=== PATIENT | female | born 1990 | race Two or more races ===

== ENCOUNTER 2024-09-19 21:08 | Inpatient (IN) | payer MEDICAID, OTHER ==
[~2024-09-19] VITALS: Ht 170.2 cm; Wt 130.5 kg
--- NOTE | 2024-09-19 21:24 | ED.PDOC ---
History of Present Illness HPI Comments 34 year old female brought in by EMS presents to the ED with a chief complaint of syncope onset today. Per EMS, patient was hypotensive on scene, BP 60/40, pale and experiencing shortness of breath. Patient states she began experiencing shortness of breath, chest pain, headache, diffused abdominal pain and g eneralized weakness since this morning, noticed she experienced similar symptoms when . Patient has an IUD in place, LMP was early August, took an at home test, was positive, has noticed spotting since yesterday. Denies fever, chills, nausea, vomiting, diarrhea, blurry vision. No other symptoms or modifying factors present at this time. . Vaginal deliveries. History of PE and hyperthyroidism during previous . History of 2 spontaneous abortions. Chief Complaint: Low Blood Pressure Time Seen by MD: 21:10 Reviewed Notes: Medications, Allergies Allergies: Coded Allergies: NO KNOWN ALLERGIES (Unverified , 09/19/24) Home Meds Active Scripts Ondansetron Odt 4MG Tab (ZOFRAN PO) 4 Mg Tb, 4 MG PO Q4HPRN PRN for 7 Days, #35 TAB ODT TAB-DISSOLVE IN MOUTH, THEN SWALLOW Prov:DAR QUINN DO 09/20/24 Ibuprofen (Ibuprofen) 800 Mg Tab, 800 MG PO TID PRN for 4 Days, #12 TAB Prov:DAR QUINN 09/20/24 Hydrocodone-Acetaminophen (Hydrocodone/Acetaminophen 10-325 mg) 1 Tab Tab, 1 TAB PO Q6HPRN PRN for 7 Days, #28 TAB Prov:DAR QUINN DO 09/20/24 Docusate Sodium (Colace) 100 Mg Cap, 1 CAP PO BID, #60 CAP 2 Refills Prov:DAR QUINN 09/20/24 Cephalexin Monohydrate (Cephalexin) 500 Mg Tab, 1 TAB PO QID for 7 Days, #28 TAB Prov:DAR QUINN 09/20/24 Information Source: Patient, Emergency Med Personnel Mode of Arrival: EMS Severity: Moderate Timing: Hours Duration: Since onset Prehospital treatment: IVF Vital Signs Vital Signs Date Time Temp Pulse Resp B/P (MAP) Pulse Ox O2 Delivery O2 Flow Rate FiO2 09/20/24 01:43 95/56 09/20/24 01:30 92 23 100 09/19/24 22:16 Room Air* 0 21 09/19/24 21:55 97.8 97.8 Physical Exam General: Awake, alert and oriented. No acute distress. Using cell phone to text while on EMS stretcher. Skin: Skin is pale HEENT: The head is normocephalic and atraumatic. Conjunctivae are clear without exudates or hemorrhage. Sclera is non-icteric. EOM are intact. No signs of nystagmus. Eyelids are normal in appearance without swelling or lesions. Oral mucosa is pink and moist Neck: The neck is supple with normal range of motion. No JVD. Cardiac: Heart rate and rhythm are normal. No murmurs, gallops, or rubs are auscultated. Bilateral radial pulses palpated. Respiratory: No signs of respiratory distress. Lung sounds are clear in all lobes bilaterally without rales, ronchi, or wheezes. Abdominal: Abdomen is soft, generally tender without distention. Bowel sounds are present and normoactive in all four quadrants. Extremities: Upper and lower extremities are atraumatic in appearance without deformity or edema. Neurological: The patient is awake, alert and oriented to person, place, and time with normal speech. Speech is clear. There is no facial asymmetry. Psychiatric: Appropriate mood and affect. Good judgement and insight. No visual or auditory hallucinations. Review of Systems: As stated in HPI Past Medical History PAST MEDICAL HISTORY: Denies Surgical History: Denies all surgeries PURCHASING MANAGER/SALES History: No Pertinent PURCHASING MANAGER/SALES History Family History Family History: Reviewed,noncontributory to illness, No family hx of Cancer, No family hx of DM, No family hx of Heart eleonora, No family hx of HTN, No family hx ofKidney eleonora, No family hx of Liver eleonora, No family hx of Lung eleonora, No family hx of Stroke Social History Smoker: Non-Smoker Alcohol: Denies ETOH Use Drugs: Denies Drug Use Lives In: Home Was a procedure done? Was a procedure done?: No Differential Dx Considerations may include: Differential diagnosis considered include but are not limited to hypovolemia, anemia, sepsis, cardiogenic shock, ectopic , other X-Ray, Labs, Meds, VS Vital Signs Date Time Temp Pulse Resp B/P (MAP) Pulse Ox O2 Delivery O2 Flow Rate FiO2 09/20/24 01:43 95/56 09/20/24 01:30 92 23 95/56 (69) 100 09/20/24 01:20 88 20 99/60 (73) 100 09/20/24 01:15 82/47 09/20/24 01:15 88 27 82/47 (59) 100 09/20/24 01:00 85 24 99/64 (76) 100 09/20/24 01:00 99/64 09/20/24 00:45 92 26 97/65 (76) 100 09/20/24 00:30 88 27 94/55 (68) 100 09/20/24 00:15 73 25 92/52 (65) 100 09/20/24 00:10 91/49 09/20/24 00:05 77/43 09/20/24 00:00 72/42 09/20/24 00:00 75 18 72/42 (52) 100 09/19/24 23:51 91/49 09/19/24 23:45 74 18 91/49 (63) 100 09/19/24 23:30 65 18 116/61 (79) 100 09/19/24 23:00 99/54 09/19/24 23:00 74 16 99/54 (69) 100 09/19/24 22:45 70 16 105/63 (77) 100 09/19/24 22:30 83 16 105/46 (65) 100 09/19/24 22:20 94/34 09/19/24 22:20 72 16 94/34 (54) 100 09/19/24 22:16 80 16 Room Air* 0 21 09/19/24 22:15 74/41 09/19/24 22:15 47 16 74/41 (52) 100 09/19/24 22:10 74/22 09/19/24 22:00 47 16 74/44 (54) 100 09/19/24 21:55 97.8 80 16 74/22 (39) 100 97.8 09/19/24 21:16 97.7 60 22 60/40 (47) 96 Lab Test 09/20/24 00:16 09/19/24 23:22 09/19/24 22:28 09/19/24 21:36 Range/Units Prothrombin Time 12.5 H 9.3-11.8 sec Prothrombin Time INR 1.20 H 0.9-1.15 Activated Partial Thromboplast Time 23.4 L 24.5-34.5 SEC Troponin I High Sensitivity 9 9 13 </=34 ng/L Influenza Type A Antigen Negative Negative Influenza Type B Antigen Negative Negative SARS-CoV-2 Antigen (Rapid) Negative NEGATIVE Lactic Acid Level 1.2 0.4-2.0 mmol/L White Blood Count 8.2 4.4-10.8 10^3/uL Red Blood Count 4.08 4.0-5.20 10^6/uL Hemoglobin 11.6 L 12.2-16.2 g/dL Hematocrit 35.4 L 36.0-46.0 % Mean Corpuscular Volume 86.7 80.0-100.0 fL Mean Corpuscular Hemoglobin 28.5 28.0-32.0 pg Mean Corpuscular Hemoglobin Concent 32.9 32.0-36.0 g/dL Red Cell Distribution Width 14.1 11.8-14.3 % Platelet Count 174 140-450 10^3/uL Mean Platelet Volume 9.7 6.9-10.8 fL Neutrophils (%) (Auto) 63.5 37.0-80.0 % Lymphocytes (%) (Auto) 30.3 10.0-50.0 % Monocytes (%) (Auto) 4.3 0.0-12.0 % Eosinophils (%) (Auto) 1.3 0.0-7.0 % Basophils (%) (Auto) 0.6 0.0-2.0 % Neutrophils # (Auto) 5.2 1.6-8.6 10 ^3/uL Lymphocytes # (Auto) 2.5 0.4-5.4 10 ^3/uL Monocytes # (Auto) 0.4 0-1.3 10 ^3/uL Eosinophils # (Auto) 0.1 0-0.8 10 ^3/uL Basophils # (Auto) 0.1 0-0.2 10 ^3/uL Nucleated Red Blood Cells 0.1 % D-Dimer, Quantitative 0.75 H 0.0-0.49 mg/L FEU Sodium Level 140 136-145 mmol/L Potassium Level 3.3 L 3.5-5.1 mmol/L Chloride Level 108 H 98-107 mmol/L Carbon Dioxide Level 21 20-31 mmol/L Anion Gap 11 5-15 Blood Urea Nitrogen 11 9-23 mg/dL Creatinine 0.78 0.550-1.02 mg/dL Glomerular Filtration Rate Calc 102 >90 mL/min BUN/Creatinine Ratio 14.1 10.0-20.0 Serum Glucose 126 H 74-106 mg/dL Calcium Level 9.3 8.7-10.4 mg/dL Magnesium Level 1.9 1.6-2.6 mg/dL Total Bilirubin 0.3 0.2-1.0 mg/dL Aspartate Amino Transferase (AST) 16 13-40 U/L Alanine Aminotransferase (ALT) 18 7-40 U/L Alkaline Phosphatase 50 46-116 U/L B-Type Natriuretic Peptide 9.61 0-100 pg/mL Total Protein 6.4 5.7-8.2 g/dL Albumin 4.2 3.2-4.8 g/dL Thyroid Stimulating Hormone (TSH) 2.12 0.55-4.78 uIU/mL Beta HCG, Quantitative 4084.3 H 1.5-4.2 mIU/mL Current Medications Medications (Trade) Dose Ordered Sig/Yoshi Route Start Time Stop Time Status Last Admin Sodium Chloride 1,000 ml @ 1,000 mls/hr Q1H ONCE IV 09/19/24 21:30 09/19/24 22:29 DC 09/19/24 21:30 Sodium Chloride 1,000 ml @ 1,000 mls/hr Q1H ONCE IV 09/19/24 22:15 09/19/24 23:14 DC 09/19/24 22:35 Sodium Chloride 1,000 ml @ 130 mls/hr Q7H42M ONCE IV 09/19/24 22:15 09/20/24 05:56 DC 09/19/24 22:35 Norepinephrine Bitartrate 250 ml @ 3.75 mls/hr Q24H IV 09/19/24 22:00 09/19/24 22:10 Sodium Chloride 1,000 ml @ 1,000 mls/hr Q1H ONCE IV 09/19/24 22:05 09/19/24 23:04 DC 09/19/24 22:08 Fentanyl Citrate 25 mcg ONCE ONCE IV 09/19/24 23:30 09/19/24 23:31 DC 09/19/24 23:51 Lactated Ringer's 1,000 ml @ 150 mls/hr Q6H40M IV 09/20/24 01:45 09/20/24 15:05 Time of 1ST Reevaluation: 21:40 Reevaluation 1ST: Unchanged Patient Education/Counseling: Diagnosis, Treatment, Prognosis Family Education/Counseling: No Family Present Additional Information The following tests were ordered, and results were reviewed by me: TROP-x3, EKG, CBC, CMP, BNP, D-DIMER, XY CHEST, UA, MAGNESIUM, BETA HCG, COVID, RAPID INFLUENZA A&B, US PELVIC Additional Information was gathered from interviewing the following independent historians: EMS I reviewed and agreed with the following test results read by other providers: US PELVIC, XY CHEST I discussed treatment and results with medical personnel and patient Departure 1 Departure Time of Disposition: 00:59 Impression: Primary Impression: Hypotension Additional Impressions: Syncope Ruptured ectopic Disposition: ADMITTED INPATIENT Condition: Stable e-Prescriptions Ondansetron Odt 4MG Tab (ZOFRAN PO) 4 Mg Tb 4 MG PO Q4HPRN PRN for 7 Days, #35 TAB ODT TAB-DISSOLVE IN MOUTH, THEN SWALLOW Prov: DAR QUINN DO 09/20/24 Ibuprofen (Ibuprofen) 800 Mg Tab 800 MG PO TID PRN for 4 Days, #12 TAB Prov: DAR QUINN DO 09/20/24 Hydrocodone-Acetaminophen (Hydrocodone/Acetaminophen 10-325 mg) 1 Tab Tab 1 TAB PO Q6HPRN PRN for 7 Days, #28 TAB Prov: DAR QUINN DO 09/20/24 Docusate Sodium (Colace) 100 Mg Cap 1 CAP PO BID, #60 CAP 2 Refills Prov: DAR QUINN DO 09/20/24 Cephalexin Monohydrate (Cephalexin) 500 Mg Tab 1 TAB PO QID for 7 Days, #28 TAB Prov: DAR QUINN DO 09/20/24 Comments 34 Female with ruptured ectopic . Patient hypotensive on arrival. She was started on IVF and then pressors. Beta Quant was elevated and US showed ruptured ectopic . 00:[address] Quinn, recommendation is add on PT/PTT, She will call in OR Team in 00:[address] Quinn US showing likely rupture left ectopic . Extensive evaluation was performed in attempt to identify or rule out: (See differential diagnosis section) The following tests were ordered, and results were reviewed by me: (See diagnostic results section) The following test were independently interpreted by me: EKG I reviewed and agreed with the following test results read by other providers: N/A I reviewed the following notes from the pt's past medical encounters: N/A Additional information was gathered from interviewing the following independent historians: N/A Discussion of management or test interpretation with external physician/other qualified health care navigator: Dr. Quinn Addressed [ ]one or more chronic illnesses with severe exacerbation, progression, or side effects of treatment: [ ]an acute or chronic illness that poses a threat to life or bodily function: Ruptured ectopic with shock Decision regarding hospitalization or escalation of hospital level of care: Risk and benefits of admission for further treatment of patient's condition was considered. Due to patient's current clinical condition, high risk of decline and poor outcome if discharged and need for further inpatient management and monitoring, patient will be admitted to the hospital. Drug therapy requiring intensive monitoring for toxicity: Levophed Parenteral controlled substances: Fentanyl Decision regarding elective major surgery with identified patient or procedure risk factors: N/A Decision regarding emergency major surgery: Yes Decision not to resuscitate or to de-escalate care because of poor prognosis: N/A Diagnosis or treatment significantly limited by social determinants of health: N/A Decision regarding hospitalization or escalation of hospital level of care: Risks and benefits of admission for further treatment of patient's condition was considered however due to patient's stable condition patient will be discharged to follow up closely or return to care for worsening of condition or inability to follow up. Critical Care Note Critical Care Time?: Yes (35 min-critical care time only) Critical care comment: Due to a high probability of clinically significant, life threatening deterioration, the patient required my highest level of preparedness to intervene emergently and I personally spent this critical care time directly and personally managing the patient. This critical care time included obtaining a history; examining the patient; pulse oximetry; ordering and review of studies; arranging urgent treatment with development of a management plan; evaluation of patient's response to treatment; frequent reassessment; and, discussions with other providers. This critical care time was performed to assess and manage the high probability of imminent, life-threatening deterioration that could result in multi-organ failure. It was exclusive of separately billable procedures and treating other patients and teaching time. Please see my other sections and the rest of the note for further information on patient assessment and treatment. Stability Stability form required: No I personally scribed for LISA APPLE MD ([email or web address]) on 09/19/24 at 21:24. Electronically submitted by Анна Mejia ([email or web address]). I personally scribed for LISA APPLE MD ([email or web address]) on 09/19/24 at 21:45. Electronically submitted by Анна Mejia ([email or web address]). LISA APPLE MD Sep 19, 2024 21:24
[2024-09-19] MEDS: SODIUM CHLORIDE 0.9% 1,000 ML IV ONE ×4 (21:30→22:35)
[2024-09-19 21:46] LABS: Basophils # (auto) 0.1 10 ^3/uL (0-0.2); Basophils % (auto) 0.6 % (0.0-2.0); Eosinophils # (auto) 0.1 10 ^3/uL (0-0.8); Eosinophils % (auto) 1.3 % (0.0-7.0); Hematocrit 35.4 % (36.0-46.0); Hemoglobin 11.6 g/dL (12.2-16.2); Lymphocytes # (auto) 2.5 10 ^3/uL (0.4-5.4); Lymphocytes % (auto) 30.3 % (10.0-50.0); Mean Corpuscular Hemoglobin 28.5 pg (28.0-32.0); Mean Corpuscular Hgb Conc. 32.9 g/dL (32.0-36.0); Mean Corpuscular Volume 86.7 fL (80.0-100.0); Monocytes # (auto) 0.4 10 ^3/uL (0-1.3); Monocytes % (auto) 4.3 % (0.0-12.0); Neutrophils # (auto) 5.2 10 ^3/uL (1.6-8.6); Neutrophils % (auto) 63.5 % (37.0-80.0); Nucleated Red Blood Cells % 0.1 %; Platelet Count (auto) 174 10^3/uL (140-450); Red Blood Cells 4.08 10^6/uL (4.0-5.20); Red Cell Distribution Width 14.1 % (11.8-14.3); White Blood Cell 8.2 10^3/uL (4.4-10.8)
[2024-09-19 22:04] LABS: Alanine Aminotransferase 18 U/L (7-40); Albumin 4.2 g/dL (3.2-4.8); Alkaline Phosphatase 50 U/L (46-116); Anion Gap 11 (5-15); Aspartate Aminotransferase 16 U/L (13-40); BUN/Creatinine Ratio 14.1 (10.0-20.0); Bilirubin, Total 0.3 mg/dL (0.2-1.0); Blood Urea Nitrogen 11 mg/dL (9-23); Calcium 9.3 mg/dL (8.7-10.4); Carbon Dioxide 21 mmol/L (20-31); Magnesium 1.9 mg/dL (1.6-2.6); Sodium 140 mmol/L (136-145); Total Protein 6.4 g/dL (5.7-8.2)
--- NOTE | 2024-09-19 22:05 | DVH ---
EXAM: XY CHEST PORTABLE CLINICAL HISTORY: syncope TECHNIQUE: Single AP view of the chest WID: COMPARISON: None FINDINGS: Lines and tubes: None Chest: The heart size and pulmonary vasculature is within normal limits. No pleural effusion, pneumothorax, or consolidation. The osseous structures are grossly intact. IMPRESSION: No acute cardiopulmonary abnormality.
[2024-09-19 22:07] LABS: Chloride 108 mmol/L (98-107); Glucose 126 mg/dL (74-106); Potassium 3.3 mmol/L (3.5-5.1)
[2024-09-19] MEDS: NOREPINEPHRINE 8 MG/250ML KIT 250 ML IV ONE (22:08)
[2024-09-19] MEDS: NOREPINEPHRINE 8 MG/250ML KIT 250 ML IV SCH (22:10)
[2024-09-19 22:16] VITALS: PULSE 80; RESP 16
[2024-09-19] MEDS: fentaNYL CITRATE 100 MCG/2 ML VL IV ONE (23:51)
[2024-09-19] MEDS: fentaNYL CITRATE 100 MCG/2 ML VL ONE (23:53)
[2024-09-20] VITALS (15 sets, daily range): BP systolic 74–104; BP diastolic 40–54; PULSE 74–103; RESP 16–22; TEMP 98.2–99.1; O2SAT 94–100
[2024-09-20 00:14] LABS: Rapid Influenza A Negative (Negative); Rapid Influenza B Negative (Negative)
[2024-09-20 00:15] LABS: COVID19 ANTIGEN SOFIA FIA NEGATIVE (NEGATIVE)
[2024-09-20 01:04] LABS: INR 1.2 (0.9-1.15); Partial Thromboplastin Time 23.4 SEC (24.5-34.5); Prothrombin Time 12.5 sec (9.3-11.8)
[2024-09-20] MEDS ORDERED: fentaNYL CITRATE 100 MCG/2 ML VL ONE (01:44)
[2024-09-20] MEDS ORDERED: PROPOFOL 10 MG/ML 20 ML IV ONE (01:44)
[2024-09-20] MEDS ORDERED: PHENYLEPHRINE HCL 10 MG/ML VL ONE (01:44)
[2024-09-20] MEDS ORDERED: ROCURONIUM 10MG/ML 10ML VIAL IV ONE (02:12)
[2024-09-20] MEDS ORDERED: ONDANSETRON HCL 4 MG/2 ML VIAL ONE (02:34)
[2024-09-20] MEDS ORDERED: DexAMETHasone SOD PHOS 10MG/1ML VIAL INJ ONE (02:34)
--- NOTE | 2024-09-20 02:50 | DVHOP2 ---
Operative Report DATE OF OPERATION: 09/20/24 PREOPERATIVE DIAGNOSES: Ruptured ectopic ,MORBID OBESITY,HX OF PE,HYPOVOLEMIC SHOCK DUE TO RUPTURED ECTOPIC PREG ,HYPERTHYROIDISM,HEM OPPERITONEUM POSTOPERATIVE DIAGNOSES: SAME SURGEON: Krystyna Quinn D.O./ALEXIS ANESTHESIOLOGIST: BLAISE TYPE OF ANESTHESIA : General CONSENT: The patient was informed of the risks and benefits of the procedure. The patient was informed of the risks and benefits of the procedure. These include but are not limited to , complications of anesthesia, postoperative infection, incomplete relief of symptoms, recurrence of symptoms, damage to blood vessels, nerves and tendons, deep venous thrombosis, pulmonary embolism and possible need for repeat surgery in the future. FINDINGS: 3 L of hemoperitoneum, LEFT ectopic ampullary leaking , right ovary AND TUBE grossly normal appearing, uterus 8 weeks size, left ovary grossly normal. PROCEDURES: Exploratory laparotomy,LEFT salpingectomy,evacuation of clots.,LEIDY ELO OF IUD PROCEDURE IN DETAIL: The patient was taken to the operating room placed in supine position. IUD WAS REMOVED FROM CERVIX AFTER GENERAL ANESTH WAS GIVEN.General anesthesia was performed without difficulty. A low Pfannenstiel incision was made with scalpel down to the rectus fascia. The rectus fascia was nicked in the midline and carried laterally. The rectus fascia was dissected superiorly and inferiorly. The rectus muscles were in the midline. Peritoneum was identified and entered with sharp dissection . An O'Kole- O'Dawn retractor with moist laps were placed into the abdomen and bowel was packed at this point. At approximately 3000 ml of hemoperitoneum was evacuated. The ectopic was identified and using a WILLIAM stapler the LEFTt tube was excised. Clips were applied to the pedicular site. Copious irrigation was performed all blood clots were removed. The RIGHT tube and ovary were grossly intact. The LEFTovary was grossly intact appearing. Uterus was 8 weeks in size. Surgicel was applied to to the LEFT PEDICULAR tubal site. All laparotomy sponges were removed from the abdomen and pelvis. No bleeding was noted good hemostasis was noted. The O'Kole O'Dawn retractor was removed. Fascia was closed using 0 Prolene x2. Skin was closed using staplers. Patient was extubated successfully. She was taken to recovery room in stable condition. Specimen was sent to pathology and it was taken out of the room. ESTIMATED BLOOD LOSS: EBL was 3 L of hemoperitoneum 100 ml intraoperative blood loss. Visit Coding OBGYN Date of Service: Sep 20, 2024 Billing Provider: KRYSTYNA QUINN DO FERTILIZER APPLICATOR Common Visit Codes: [id number] INP/OBS CARE (HIGH) KRYSTYNA QUINN DO Sep 20, 2024 02:49
--- NOTE | 2024-09-20 02:50 | DVH ---
Examination: OB4US -TA/TV CLINICAL INDICATION: Pelvic pain, vaginal spotting, IUD in place, + home pregnanc COMPARISON: None. TECHNIQUE: Transabdominal and transvaginal ultrasound was performed. FINDINGS: The uterus is anteverted and measures 9.7 cm in length, 3.6 cm in anteroposterior and 5.7 cm in trans verse dimensions. It shows homogenous echotexture. No intrauterine seen. Intrauterine contraceptive device is noted in the fundus of the uterus. Cervix is within normal limits. Both ovaries are within normal limits. Free fluid noted in the Nice`s pouch, left adnexa and cul-de-sac. Anechoic structure is seen in the left adnexa transabdominally measuring 20 x 22 x 29 mm. A heterogen eous structure measuring 59 x 27 x 72 mm is seen in the left adnexa transvaginally. IMPRESSION: 1. No intrauterine seen. 2. Intrauterine contraceptive device is noted in the fundus of the uterus. 3. Free fluid noted in the Nice`s pouch, left adnexa and cul-de-sac. 4. Anechoic structure is seen in the left adnexa transabdominally. Heterogeneous structure seen in t he left adnexa transvaginally. 5. Suggest CT pelvis plain and contrast correlation. Electronically Signed 09/20/2024 02:49 Michelle Ibarra
--- NOTE | 2024-09-20 02:53 | POSTOP ---
Post-Operative Note Post-Operative Note Preop Diagnosis RUPTURED ECTOPIC PREG,HYUPOVOLMIC SHOCK,MORBID OBESITY,HX OF PE,HX OF HYPERTHYROIDISM,HEMOPERITONEUM,,PERCIPITOUS DROP IN HGB Postop Diagnosis: SAME Operation performed EXPL LAP ,REMOVAL OF IUD,LEFT SALPINGECTOMY,EVACUATION OF HEMOPERITONUM Specimen LEFT TUBE Anesthesia: General Anesthesiologist: BLAISE Blood Loss(fluid mgmt) 100ML,3 L OF HEMOPERITONEU Surgeon Dar Quinn Supervisor Loading ALEXIS Implant CLIPS Complications & Mgmt NONE Date 09/20/24 Time 02:50 Visit Coding OBGYN Date of Service: Sep 20, 2024 Billing Provider: DAR QUINN DO COMPANY DANCER Common Visit Codes: [id number] INP/OBS CARE (HIGH) DAR QUINN DO Sep 20, 2024 02:53
[2024-09-20] MEDS ORDERED: CEPH500T PO (02:56)
[2024-09-20] MEDS ORDERED: HYDR-4072 PO (02:56)
[2024-09-20] MEDS ORDERED: DOCU-94 PO (02:56)
[2024-09-20] MEDS ORDERED: IBUP-1456 PO (02:56)
[2024-09-20] MEDS ORDERED: ZOFR4T PO (02:56)
[2024-09-20] MEDS ORDERED: SUGAMMADEX 200mg/2ml Vial (100MG/ML) IV ONE (03:04)
[2024-09-20] MEDS ORDERED: MEPERIDINE HCL (25 MG/ML) 1ML VIAL ONE (03:07)
[2024-09-20] MEDS: BUPIVACAINE W/ EPINEPH 0.5% MPF 30ML VIAL IJ ONE (03:08)
[2024-09-20] MEDS: LIDOCAINE 1% HCL (LOCAL ANESTH.) INJ 20ML MDV ONE (03:08)
[2024-09-20] MEDS ORDERED: MORPHINE SULFATE INJ 2 MG/ml SYRG IV PRN (03:15)
[2024-09-20] MEDS ORDERED: ACETAMINOPHEN IV 1000 MG/100ML (10MG/ML) IV PRN (03:30)
[2024-09-20] MEDS: ACETAMINOPHEN IV 1000 MG/100ML (10MG/ML) IV ONE (03:35)
[2024-09-20] MEDS: MEPERIDINE HCL (25 MG/ML) 1ML VIAL IV PRN (03:38)
[2024-09-20] MEDS: HYDROmorphone HCL 2 MG/ML VL/or syr IV PRN ×3 (03:45→18:36)
--- NOTE | 2024-09-20 03:54 | DVHHP ---
ADMIT DATE: 09/20/2024 CHIEF COMPLAINT: Hypotension, syncopal episode. HISTORY OF PRESENT ILLNESS: The patient is a 34-year-old female, brought in to ER by EMS, complaining of syncopal episode. The patient's blood pressure was 60/40, experiencing shortness of breath. The patient had some abdominal pain, weakness. She has IUD in place. Last menstrual period was early August. She took a test at home, which was positive. Her stat ultrasound revealed ruptured ectopic , possible ectopic on the left side. The patient had history of PE and hyperthyroidism during her previous and a lot of blood products and fluid was noted in the abdomen. PAST MEDICAL HISTORY: Hyperthyroidism, PE. PAST SURGICAL HISTORY: None. SOCIAL HISTORY: None. OBSTETRIC AND GYNECOLOGIC HISTORY: Four vaginal deliveries. REVIEW OF SYSTEMS: Consistent with HPI. PHYSICAL EXAMINATION: VITAL SIGNS: Blood pressure 90/40, on Levophed. HEENT: Pale conjunctivae. CARDIOVASCULAR: Tachy rate. LUNGS: Clear to auscultation. BREASTS: Symmetrical. No masses. ABDOMEN: Generalized rebound tenderness, peritoneal sign. PELVIC: No vaginal bleeding noted. Some spotting noted. Uterus 8 weeks' size. Adnexa ____ tender. EXTREMITIES: No clubbing, cyanosis, edema. IMPRESSION: * Ruptured ectopic . * Morbid obesity. * History of pulmonary embolism in the past. * Hyperthyroidism. PLAN: Exploratory laparotomy, possible removal of affected tube or ovary, possible blood transfusion. Informed consent obtained. Risks, complications of surgery including infection, bleeding, hematoma formation, injury to bowel, bladder, surrounding organs, possibility of DVT, recurrent PE. Possibility of blood transfusion, need for further surgery discussed with the patient. Options reviewed. All questions answered. The patient fully understands. She wishes to proceed with planned procedure. DO DESHAWN Anderson/HUBER/DUKE TID: [id number] RECEIPT: [id number]
[2024-09-20 04:07] LABS: Basophils # (auto) 0 10 ^3/uL (0-0.2); Basophils % (auto) 0.1 % (0.0-2.0); Eosinophils # (auto) 0 10 ^3/uL (0-0.8); Hemoglobin 7.1 g/dL (12.2-16.2); Monocytes # (auto) 0.5 10 ^3/uL (0-1.3); Platelet Count (auto) 106 10^3/uL (140-450)
[2024-09-20 04:09] LABS: Hematocrit 21.5 % (36.0-46.0); Lymphocytes # (auto) 1.1 10 ^3/uL (0.4-5.4); Mean Corpuscular Hemoglobin 28.7 pg (28.0-32.0); Mean Corpuscular Hgb Conc. 33.1 g/dL (32.0-36.0); Mean Corpuscular Volume 86.5 fL (80.0-100.0); Neutrophils # (auto) 11.8 10 ^3/uL (1.6-8.6); Neutrophils % (auto) 87.9 % (37.0-80.0); Red Blood Cells 2.48 10^6/uL (4.0-5.20); Red Cell Distribution Width 14.3 % (11.8-14.3); White Blood Cell 13.4 10^3/uL (4.4-10.8)
--- NOTE | 2024-09-20 07:17 | ECG ---
[facility] Test Date: 2024-09-19 Test Time: 21:18:34 Pat Name: JOSÉ MIGUEL SARGENT Department: er Room: 0216T B Gender: F Cath Lab Radiology Technician: mikaela : 1990 Requested By: LISA APPLE Order Number: [id number] Reading MD: Mata Bills Measurements Intervals [place] Rate: 77 P: 35 [place]: 148 QRS: 3 QRSD: 98 T: 32 QT: 379 QTc: 429 Interpretive Statements Sinus rhythm Multiple ventricular premature complexes Borderline T abnormalities, anterior leads Electronically Signed On 09-20-2024 9:50:00 PST by Mata Bills Please click the below link to view image of tracing.
[2024-09-20] MEDS: ceFAZolin 1GM/50ML 50 ML IV SCH (07:29)
[2024-09-20] MEDS: LACTATED RINGER'S 1,000 ML IV SCH (09:41)
[2024-09-20 10:49] LABS: Basophils # (auto) 0 10 ^3/uL (0-0.2); Basophils % (auto) 0.1 % (0.0-2.0); Eosinophils # (auto) 0 10 ^3/uL (0-0.8); Hemoglobin 7.9 g/dL (12.2-16.2); Lymphocytes # (auto) 0.7 10 ^3/uL (0.4-5.4); Monocytes # (auto) 0.2 10 ^3/uL (0-1.3); Neutrophils # (auto) 6.8 10 ^3/uL (1.6-8.6); Red Blood Cells 2.76 10^6/uL (4.0-5.20); White Blood Cell 7.7 10^3/uL (4.4-10.8)
[2024-09-20 10:50] LABS: Hematocrit 23.7 % (36.0-46.0); Lymphocytes % (auto) 9.1 % (10.0-50.0); Mean Corpuscular Hemoglobin 28.6 pg (28.0-32.0); Mean Corpuscular Hgb Conc. 33.3 g/dL (32.0-36.0); Mean Corpuscular Volume 85.9 fL (80.0-100.0); Monocytes % (auto) 2.3 % (0.0-12.0); Neutrophils % (auto) 88.5 % (37.0-80.0); Platelet Count (auto) 120 10^3/uL (140-450); Red Cell Distribution Width 14.1 % (11.8-14.3)
[2024-09-20] MEDS: ACETAMINOPHEN IV 100 ML IV ONE (11:23)
[2024-09-20] MEDS: SUCCINYLCHOLINE CHLORIDE 20 MG/ML 10ML VIAL IV ONE (11:23)
[2024-09-20] MEDS: ONDANSETRON HCL 4 MG/2 ML VIAL IV ONE (11:23)
[2024-09-20] MEDS: MEPERIDINE HCL (25 MG/ML) 1ML VIAL ONE (11:23)
[2024-09-20] MEDS: ceFAZolin 2 GM/D5W100ml 100 ML IV ONE (11:23)
--- NOTE | 2024-09-20 12:10 | DVHPN2 ---
Chief Complaints Patient reports: No new complaints Nursing reports: No new complaints Objective Vitals Vital Signs Date Time Temp Pulse Resp B/P (MAP) Pulse Ox O2 Delivery O2 Flow Rate FiO2 09/20/24 09:00 98.3 77 16 78/42 (54) 96 98.3 09/20/24 08:00 Room Air* 0 21 Medications Current Medications Medications (Trade) Dose Ordered Sig/Yoshi Route PRN Reason Start Time Stop Time Status Last Admin Cefazolin Sodium 50 ml @ 100 mls/hr Q8HR IV 09/20/24 06:00 09/20/24 07:29 Hydromorphone HCl (Dilaudid Injection) 1 mg Q2HP PRN IV SEVERE PAIN (7-10 PAIN SCALE) 09/20/24 01:45 Lactated Ringer's 1,000 ml @ 150 mls/hr Q6H40M IV 09/20/24 01:45 09/20/24 09:41 Morphine Sulfate 2 mg Q30M PRN IV FOR CHEST PAIN 09/20/24 03:15 Norepinephrine Bitartrate 250 ml @ 3.75 mls/hr Q24H IV 09/19/24 22:00 09/19/24 22:10 Ondansetron HCl (Zofran) 4 mg Q4HP PRN IV NAUSEA / VOMITING 09/20/24 01:45 Head/Eyes: Abnl conjuctiva/sclera Lungs: Normal Cardiovascular: Normal Abdominal: Soft Extremities: Normal Studies Laboratory Tests 09/20/24 10:02 09/19/24 21:36 Test 09/19/24 21:36 Range/Units Serum Glucose 126 H 74-106 mg/dL Ass/Plan Assessment s/p expla lap l percipitous drop in hgb due to ruptured ectopic Plan give 2uprbc since bp is very low and pt cant get any pain med hospitalist consult Visit Coding OBGYN Date of Service: Sep 20, 2024 Billing Provider: DAR JAIME DO VENEER JOINTER OPERATOR Common Visit Codes: [id number] INP/OBS CARE (HIGH) DAR JAIME DO Sep 20, 2024 12:10
--- NOTE | 2024-09-20 15:43 | DVHPN2 ---
Chief Complaints Patient reports: No new complaints Nursing reports: No new complaints Objective Vitals Vital Signs Date Time Temp Pulse Resp B/P (MAP) Pulse Ox O2 Delivery O2 Flow Rate FiO2 09/20/24 14:31 98.3 79 18 87/49 98.3 09/20/24 13:00 97 09/20/24 08:00 Room Air* 0 21 Medications Current Medications Medications (Trade) Dose Ordered Sig/Yoshi Route PRN Reason Start Time Stop Time Status Last Admin Cefazolin Sodium 50 ml @ 100 mls/hr Q8HR IV 09/20/24 06:00 09/20/24 13:17 Hydromorphone HCl (Dilaudid Injection) 1 mg Q3HP PRN IV SEVERE PAIN (7-10 PAIN SCALE) 09/20/24 15:45 UNV Lactated Ringer's 1,000 ml @ 150 mls/hr Q6H40M IV 09/20/24 01:45 09/20/24 09:41 Morphine Sulfate 2 mg Q30M PRN IV FOR CHEST PAIN 09/20/24 03:15 Norepinephrine Bitartrate 250 ml @ 3.75 mls/hr Q24H IV 09/19/24 22:00 09/19/24 22:10 Ondansetron HCl (Zofran) 4 mg Q4HP PRN IV NAUSEA / VOMITING 09/20/24 01:45 Head/Eyes: Abnl conjuctiva/sclera Lungs: Normal Cardiovascular: Normal Abdominal: Soft Extremities: Normal Studies Laboratory Tests 09/20/24 10:02 09/19/24 21:36 Test 09/19/24 21:36 Range/Units Serum Glucose 126 H 74-106 mg/dL Ass/Plan Assessment s/p expla lap l percipitous drop in hgb due to ruptured ectopi hypotension Plan hospitalist consult stat pt is being transused Visit Coding OBGYN Date of Service: Sep 20, 2024 Billing Provider: DAR JAIME DO CONTRACT TECHNICAL WRITER Common Visit Codes: [id number] INP/OBS CARE (HIGH) DAR JAIME DO Sep 20, 2024 15:43
--- NOTE | 2024-09-20 16:18 | DVHINCON2 ---
Date Seen: Sep 20, [address] JAIME Family History: Patient reports no known family medical history. Allergies: Coded Allergies: NO KNOWN ALLERGIES (Unverified , 09/19/24) Home Meds Active Scripts Ondansetron Odt 4MG Tab (ZOFRAN PO) 4 Mg Tb, 4 MG PO Q4HPRN PRN for 7 Days, #35 TAB ODT TAB-DISSOLVE IN MOUTH, THEN SWALLOW Prov:DAR JAIME DO 09/20/24 Ibuprofen (Ibuprofen) 800 Mg Tab, 800 MG PO TID PRN for 4 Days, #12 TAB Prov:DAR JAIME DO 09/20/24 Hydrocodone-Acetaminophen (Hydrocodone/Acetaminophen 10-325 mg) 1 Tab Tab, 1 TAB PO Q6HPRN PRN for 7 Days, #28 TAB Prov:DAR JAIME 09/20/24 Docusate Sodium (Colace) 100 Mg Cap, 1 CAP PO BID, #60 CAP 2 Refills Prov:DAR JAIME DO 09/20/24 Cephalexin Monohydrate (Cephalexin) 500 Mg Tab, 1 TAB PO QID for 7 Days, #28 TAB Prov:DAR JAIME DO 09/20/24 Current Medications Current Medications Medications (Trade) Dose Ordered Sig/Yoshi Route PRN Reason Start Time Stop Time Status Last Admin Norepinephrine Bitartrate 250 ml @ 3.75 mls/hr Q24H IV 09/19/24 22:00 09/19/24 22:10 Lactated Ringer's 1,000 ml @ 150 mls/hr Q6H40M IV 09/20/24 01:45 09/20/24 09:41 Ondansetron HCl (Zofran) 4 mg Q4HP PRN IV NAUSEA / VOMITING 09/20/24 01:45 Hydromorphone HCl (Dilaudid Injection) 1 mg Q2HP PRN IV SEVERE PAIN (7-10 PAIN SCALE) 09/20/24 01:45 09/20/24 15:38 DC Cefazolin Sodium 50 ml @ 100 mls/hr Q8HR IV 09/20/24 06:00 09/20/24 13:17 Morphine Sulfate 2 mg Q30M PRN IV FOR CHEST PAIN 09/20/24 03:15 Acetaminophen (Ofirmev) 1,000 mg [id number] PRN IV PAIN SCALE 1-3 OR TEMP>100.4 09/20/24 03:30 09/20/24 03:39 DC Hydromorphone HCl (Dilaudid Injection) 0.5 mg Q10M PRN IV SEVERE PAIN (7-10 PAIN SCALE) 09/20/24 03:30 09/20/24 04:11 DC 09/20/24 04:15 Meperidine HCl (Demerol Injection) 25 mg Q10M PRN IV MODERATE PAIN (4-6 PAIN SCALE) 09/20/24 03:30 09/20/24 04:01 DC 09/20/24 03:38 Hydromorphone HCl (Dilaudid Injection) 1 mg Q3HP PRN IV SEVERE PAIN (7-10 PAIN SCALE) 09/20/24 15:45 UNV Vital Signs Vital Signs Date Time Temp Pulse Resp B/P (MAP) Pulse Ox O2 Delivery O2 Flow Rate FiO2 09/20/24 14:31 98.3 79 18 87/49 98.3 09/20/24 13:00 97 09/20/24 08:00 Room Air* 0 21 Labs/Diagnostic Data Labs Test 09/20/24 10:02 09/20/24 00:16 09/19/24 23:22 09/19/24 22:28 Range/Units White Blood Count 7.7 # 4.4-10.8 10^3/uL Red Blood Count 2.76 L 4.0-5.20 10^6/uL Hemoglobin 7.9 L 12.2-16.2 g/dL Hematocrit 23.7 #L 36.0-46.0 % Mean Corpuscular Volume 85.9 80.0-100.0 fL Mean Corpuscular Hemoglobin 28.6 28.0-32.0 pg Mean Corpuscular Hemoglobin Concent 33.3 32.0-36.0 g/dL Red Cell Distribution Width 14.1 11.8-14.3 % Platelet Count 120 L 140-450 10^3/uL Mean Platelet Volume 9.9 6.9-10.8 fL Neutrophils (%) (Auto) 88.5 H 37.0-80.0 % Lymphocytes (%) (Auto) 9.1 L 10.0-50.0 % Monocytes (%) (Auto) 2.3 0.0-12.0 % Eosinophils (%) (Auto) 0.0 0.0-7.0 % Basophils (%) (Auto) 0.1 0.0-2.0 % Neutrophils # (Auto) 6.8 1.6-8.6 10 ^3/uL Lymphocytes # (Auto) 0.7 0.4-5.4 10 ^3/uL Monocytes # (Auto) 0.2 0-1.3 10 ^3/uL Eosinophils # (Auto) 0 0-0.8 10 ^3/uL Basophils # (Auto) 0 0-0.2 10 ^3/uL Nucleated Red Blood Cells 0.0 % Prothrombin Time 12.5 H 9.3-11.8 sec Prothrombin Time INR 1.20 H 0.9-1.15 Activated Partial Thromboplast Time 23.4 L 24.5-34.5 SEC Troponin I High Sensitivity 9 </=34 ng/L Influenza Type A Antigen Negative Negative Influenza Type B Antigen Negative Negative SARS-CoV-2 Antigen (Rapid) Negative NEGATIVE Lactic Acid Level 1.2 0.4-2.0 mmol/L Test 09/19/24 21:36 Range/Units D-Dimer, Quantitative 0.75 H 0.0-0.49 mg/L FEU Sodium Level 140 136-145 mmol/L Potassium Level 3.3 L 3.5-5.1 mmol/L Chloride Level 108 H 98-107 mmol/L Carbon Dioxide Level 21 20-31 mmol/L Anion Gap 11 5-15 Blood Urea Nitrogen 11 9-23 mg/dL Creatinine 0.78 0.550-1.02 mg/dL Glomerular Filtration Rate Calc 102 >90 mL/min BUN/Creatinine Ratio 14.1 10.0-20.0 Serum Glucose 126 H 74-106 mg/dL Calcium Level 9.3 8.7-10.4 mg/dL Magnesium Level 1.9 1.6-2.6 mg/dL Total Bilirubin 0.3 0.2-1.0 mg/dL Aspartate Amino Transferase (AST) 16 13-40 U/L Alanine Aminotransferase (ALT) 18 7-40 U/L Alkaline Phosphatase 50 46-116 U/L B-Type Natriuretic Peptide 9.61 0-100 pg/mL Total Protein 6.4 5.7-8.2 g/dL Albumin 4.2 3.2-4.8 g/dL Thyroid Stimulating Hormone (TSH) 2.12 0.55-4.78 uIU/mL Beta HCG, Quantitative 4084.3 H 1.5-4.2 mIU/mL Assessment SEE DICTATED NOTE Plan discussed with: Patient Date of Service: Sep 20, 2024 Billing Provider: IADEE CALHOUN MD Common Visit Codes: [id number] INP/OBS CARE (HIGH) AIDEE CALHOUN MD Sep 20, 2024 16:18
[2024-09-20] MEDS: SODIUM CHLORIDE 0.9% 250 ML IV SCH (17:10)
--- NOTE | 2024-09-20 17:55 | DVH ---
Bilateral lower extremity venous duplex Clinical History: Swelling Comparison: None Technique: Duplex Doppler evaluation of the deep venous systems of both lower extremities from the common femora l veins to the popliteal veins including color Doppler and spectral/pulsed waveform analysis was perf ormed. Findings: RIGHT SIDE: The common femoral vein demonstrates appropriate compressibility and waveform variability. There is compressibility/patency of the great saphenous vein at the proximal thigh. The femoral vein demonstrates appropriate compressibility and waveform variability. The deep femoral vein demonstrates appropriate compressibility and waveform variability. The popliteal vein demonstrates appropriate compressibility and waveform variability. There is normal compressibility at the tibioperoneal trunk. LEFT SIDE: The common femoral vein demonstrates appropriate compressibility and waveform variability. There is compressibility/patency of the great saphenous vein at the proximal thigh. The femoral vein demonstrates appropriate compressibility and waveform variability. The deep femoral vein demonstrates appropriate compressibility and waveform variability. The popliteal vein demonstrates appropriate compressibility and waveform variability. There is normal compressibility at the tibioperoneal trunk. Impression: No right or left femoropopliteal venous thrombosis.
[2024-09-20] MEDS: IOHEXOL 350 MG/ML 100ML IJ ONE (17:59)
--- NOTE | 2024-09-20 18:31 | DVH ---
EXAM: CT Angiography Chest With Intravenous Contrast CLINICAL INDICATION: pulmonary embolism TECHNIQUE: Axial computed tomographic angiography images of the chest with intravenous contrast. Th is CT exam was performed using one or more of the following dose reduction techniques: automated exp osure control, adjustment of the mA and/or kV according to patient size, and/or use of iterative cinthia nstruction technique. MIP reconstructed images were created and reviewed. CONTRAST: COMPARISON: None FINDINGS: LIMITATIONS: Suboptimal opacification of the pulmonary arteries. PULMONARY ARTERIES: No pulmonary embolism is identified. Some of the distal pulmonary arteries can not be evaluated due to suboptimal opacification. AORTA: No acute findings. No thoracic aortic aneurysm. LUNGS AND PLEURAL SPACES: Bilateral lower lobe consolidation, likely atelectasis and/or pneumonia. No significant effusion. HEART: Unremarkable. No cardiomegaly. No significant pericardial effusion. No evidence of RV dys function. BONES/JOINTS: No acute fracture. No dislocation. SOFT TISSUES: Unremarkable. LYMPH NODES: Unremarkable. No enlarged lymph nodes. LIVER: Fatty infiltration of the liver. Hepatic cyst. OTHER FINDINGS: . . . . . .. IMPRESSION: 1. No pulmonary embolism is identified. Some of the distal pulmonary arteries cannot be evaluated d ue to suboptimal opacification. 2. Bilateral lower lobe consolidation, likely atelectasis and/or pneumonia.
--- NOTE | 2024-09-20 21:31 | DVHINCON2 ---
DATE OF CONSULTATION: 09/20/2024 INTERNAL MEDICINE CONSULT HISTORY OF PRESENT ILLNESS: The patient is a 34-year-old lady who was admitted with complaints of near syncopal episode and lower abdominal pain and was found to have an ectopic . The patient at this time complains of lower abdominal pain. She is mildly short of breath. No nausea or vomiting. REVIEW OF SYSTEMS: Review of rest of systems are otherwise currently negative. PAST MEDICAL HISTORY: Significant for questionable DVT, questionable thyroid disorder. MEDICATIONS: She takes no medications on a regular basis. ALLERGIES: No known drug allergies. SOCIAL HISTORY: Denies smoking or alcohol. FAMILY HISTORY: Negative. PHYSICAL EXAMINATION: GENERAL: The patient is awake, alert. VITAL SIGNS: Temperature of 98.2, pulse 79 per minute, blood pressure 87/49. SHEENT: Reveals pallor. NECK: There is no JVD, no pedal edema. LUNGS: Equal bilaterally. No added sounds. CARDIOVASCULAR: S1, S2 is regular, no murmurs. ABDOMEN: Tender in the lower abdomen. Bowel sounds are hypoactive. NEUROLOGIC: Nonfocal. MUSCULOSKELETAL: Normal. ASSESSMENT AND PLAN: * Severe anemia, for which the patient is currently being transfused. * Status post ectopic with surgery. * History of questionable deep venous thrombosis. Doppler will be obtained of the lower extremities as well as CT angio. * Questionable thyroid disorder, for which patient will have a TSH and a thyroid panel obtained. * Morbid obesity. I will also communicate this with Dr. Franz. * Hypotension, likely secondary to volume loss/hypovolemia. MD KASSY Escobar/RON TID: [id number] RECEIPT: [id number]
--- NOTE | 2024-09-20 22:02 | DVHINCON2 ---
Date of service: Sep 20, [address] Kerr Reason for Consultation Seizure-like activity History of Present Illness Ms. Dominguez is a left-handed female with a history of obesity, fatty liver disease, hypothyroidism, PE, the patient was admitted on 09/19/2024 with a chief company of syncopal events, in the hospital, the patient was found to have ectopic and went through surgical repair on 09/20/2024, at this time, she is alert and fully oriented, she provided the following history For about two weeks, the patient was has abdominal pain, discomfort, intermittently on getting up, she had dizziness/about passing out feeling, she was has intermittent nausea, a feeling of heart fluttering On 09/19/2024, when she was standing up, she had hot feeling in the feet, hands, which rushing towards the head, she was had nausea, increased sweating, a feeling of inadequate oxygen, and then she woke up after passing out; on waking up, she had general weakness, fatigue, nausea, increased sweating, when she was trying to get up, she passed out again, happened about 6-[address] to the hospital in the ambulance, she had five more times similar events. In the ER, even when she was in the GERD, she was had five more similar events. She had never had similar problem before, she was no history of syncope, seizure, stroke At home, EMS personnel noticed her blood pressure was 60/40, and it was low on 09/19/2024, 09/20/2024 in the hospital She was has severe anemia, and is receiving blood transfusion Mass hemorrhage noticed during surgery WBC/HB/PLT/MCV, 09/20/2024: 7.7/7.9/120/85.9 PT/INR/PTT, 09/20/2024: 12.5/122/23.4 CMP, 09/19/2024: Unremarkable TSH, 09/19/2024: 2.12 Beta hCG, 09/19/2024: 4084.3 Ultrasound, abdomen, : 1. No intrauterine seen. 2. Intrauterine contraceptive device is noted in the fundus of the uterus. 3. Free fluid noted in the Nice`s pouch, left adnexa and cul-de-sac. 4. Anechoic structure is seen in the left adnexa transabdominally. Heterogeneous structure seen in the left adnexa transvaginally. 5. Suggest CT pelvis plain and contrast correlation. CTA chest, 09/20/2024: 1. No pulmonary embolism is identified. Some of the distal pulmonary arteries cannot be evaluated due to suboptimal opacification. 2. Bilateral lower lobe consolidation, likely atelectasis and/or pneumonia Past Medical History Obesity, hypothyroidism, pulmonary emboli, fatty liver Past Surgical History Cholecystectomy, ectopic treatment on 09/20/24 Family History: Patient reports no known family medical history. Family History Hypertension, diabetes, liver disease Social History She is not a tobacco smoker, no history of alcohol or recreational substances abuse Allergies: Coded Allergies: NO KNOWN ALLERGIES (Unverified , 09/19/24) Home Meds Active Scripts Ondansetron Odt 4MG Tab (ZOFRAN PO) 4 Mg Tb, 4 MG PO Q4HPRN PRN for 7 Days, #35 TAB ODT TAB-DISSOLVE IN MOUTH, THEN SWALLOW Prov:DAR JAIME DO 09/20/24 Ibuprofen (Ibuprofen) 800 Mg Tab, 800 MG PO TID PRN for 4 Days, #12 TAB Prov:DAR JAIME DO 09/20/24 Hydrocodone-Acetaminophen (Hydrocodone/Acetaminophen 10-325 mg) 1 Tab Tab, 1 TAB PO Q6HPRN PRN for 7 Days, #28 TAB Prov:DAR JAIME DO 09/20/24 Docusate Sodium (Colace) 100 Mg Cap, 1 CAP PO BID, #60 CAP 2 Refills Prov:DAR JAMIE 09/20/24 Cephalexin Monohydrate (Cephalexin) 500 Mg Tab, 1 TAB PO QID for 7 Days, #28 TAB Prov:DAR JAIME 09/20/24 Current Medications Current Medications Medications (Trade) Dose Ordered Sig/Yoshi Route PRN Reason Start Time Stop Time Status Last Admin Norepinephrine Bitartrate 250 ml @ 3.75 mls/hr Q24H IV 09/19/24 22:00 09/19/24 22:10 Lactated Ringer's 1,000 ml @ 150 mls/hr Q6H40M IV 09/20/24 01:45 09/20/24 15:05 Ondansetron HCl (Zofran) 4 mg Q4HP PRN IV NAUSEA / VOMITING 09/20/24 01:45 Hydromorphone HCl (Dilaudid Injection) 1 mg Q2HP PRN IV SEVERE PAIN (7-10 PAIN SCALE) 09/20/24 01:45 09/20/24 15:38 DC Cefazolin Sodium 50 ml @ 100 mls/hr Q8HR IV 09/20/24 06:00 09/20/24 13:17 Morphine Sulfate 2 mg Q30M PRN IV FOR CHEST PAIN 09/20/24 03:15 Acetaminophen (Ofirmev) 1,000 mg [id number] PRN IV PAIN SCALE 1-3 OR TEMP>100.4 09/20/24 03:30 09/20/24 03:39 DC Hydromorphone HCl (Dilaudid Injection) 0.5 mg Q10M PRN IV SEVERE PAIN (7-10 PAIN SCALE) 09/20/24 03:30 09/20/24 04:11 DC 09/20/24 04:15 Meperidine HCl (Demerol Injection) 25 mg Q10M PRN IV MODERATE PAIN (4-6 PAIN SCALE) 09/20/24 03:30 09/20/24 04:01 DC 09/20/24 03:38 Hydromorphone HCl (Dilaudid Injection) 1 mg Q3HP PRN IV SEVERE PAIN (7-10 PAIN SCALE) 09/20/24 15:45 09/20/24 18:36 Sodium Chloride 250 ml @ 999 mls/hr Q16M IV 09/20/24 16:30 09/20/24 18:41 DC 09/20/24 17:10 Review of Systems As above, the other systems are negative Vital Signs Vital Signs Date Time Temp Pulse Resp B/P (MAP) Pulse Ox O2 Delivery O2 Flow Rate FiO2 09/20/24 21:00 99.1 94 16 91/45 99.1 09/20/24 17:00 98 09/20/24 08:00 Room Air* 0 21 Physical Exam GENERAL EXAM: General: the patient is well developed and nourished. No acute distress. HEENT: Normocephalic, neck is supple, no carotid bruits. No mass. The throat is Mallampati grade RESPIRATORY: Normal respiratory effort with symmetrical lung expansion. Lungs clear to auscultation. CARDIOVASCULAR: Regular rate and rhythm with no murmurs. S1, S2. ABDOMEN: Status post surgery NEUROLOGICAL: MENTAL STATUS: Awake and alert. Oriented to person, place, time and general circumstances. Able to give personal history. SPEECH, LANGUAGE, HIGHER CORTICAL FUNCTION: no aphasia or dysathria. CRANIAL NERVES: #2: Intact visual poon to confrontation. The optic discs were sharp. #3,4,6: Pupils are equal, round and reactive. EOMs full and conjugate. #5: Facial sensation intact in all three divisions bilaterally. Mandibular strength intact. #7: Facial muscles symmetrical and strength intact. #8: Hearing grossly normal to voice. #9,10: Uvula and soft palate rise in the midline. Swallow and voice are normal. #11: Trapezius and sternomastoid strength intact bilaterally. #12: Tongue midline. No fasciculations or atrophy. SENSATION: Sensation to touch and pinprick is normal. MOTOR: Normal tone in the upper and lower extremity. Normal muscle bulk. No fasciculations. No abnormal movements or posturing. Muscle strength of the major groups in the upper extremities is 5/5. Muscle strength of the major groups in the lower extremities is 5/5. REFLEXES: Deep tendon reflexes normal and symmetrical. No pathological reflexes. CEREBELLAR/COORDINATION: Finger is normal bilaterally. GAIT/STATION: deferred. Labs/Diagnostic Data Labs Test 09/20/24 10:02 09/20/24 00:16 09/19/24 23:22 09/19/24 22:28 Range/Units White Blood Count 7.7 # 4.4-10.8 10^3/uL Red Blood Count 2.76 L 4.0-5.20 10^6/uL Hemoglobin 7.9 L 12.2-16.2 g/dL Hematocrit 23.7 #L 36.0-46.0 % Mean Corpuscular Volume 85.9 80.0-100.0 fL Mean Corpuscular Hemoglobin 28.6 28.0-32.0 pg Mean Corpuscular Hemoglobin Concent 33.3 32.0-36.0 g/dL Red Cell Distribution Width 14.1 11.8-14.3 % Platelet Count 120 L 140-450 10^3/uL Mean Platelet Volume 9.9 6.9-10.8 fL Neutrophils (%) (Auto) 88.5 H 37.0-80.0 % Lymphocytes (%) (Auto) 9.1 L 10.0-50.0 % Monocytes (%) (Auto) 2.3 0.0-12.0 % Eosinophils (%) (Auto) 0.0 0.0-7.0 % Basophils (%) (Auto) 0.1 0.0-2.0 % Neutrophils # (Auto) 6.8 1.6-8.6 10 ^3/uL Lymphocytes # (Auto) 0.7 0.4-5.4 10 ^3/uL Monocytes # (Auto) 0.2 0-1.3 10 ^3/uL Eosinophils # (Auto) 0 0-0.8 10 ^3/uL Basophils # (Auto) 0 0-0.2 10 ^3/uL Nucleated Red Blood Cells 0.0 % Prothrombin Time 12.5 H 9.3-11.8 sec Prothrombin Time INR 1.20 H 0.9-1.15 Activated Partial Thromboplast Time 23.4 L 24.5-34.5 SEC Troponin I High Sensitivity 9 </=34 ng/L Influenza Type A Antigen Negative Negative Influenza Type B Antigen Negative Negative SARS-CoV-2 Antigen (Rapid) Negative NEGATIVE Lactic Acid Level 1.2 0.4-2.0 mmol/L Test 09/19/24 21:36 Range/Units D-Dimer, Quantitative 0.75 H 0.0-0.49 mg/L FEU Sodium Level 140 136-145 mmol/L Potassium Level 3.3 L 3.5-5.1 mmol/L Chloride Level 108 H 98-107 mmol/L Carbon Dioxide Level 21 20-31 mmol/L Anion Gap 11 5-15 Blood Urea Nitrogen 11 9-23 mg/dL Creatinine 0.78 0.550-1.02 mg/dL Glomerular Filtration Rate Calc 102 >90 mL/min BUN/Creatinine Ratio 14.1 10.0-20.0 Serum Glucose 126 H 74-106 mg/dL Calcium Level 9.3 8.7-10.4 mg/dL Magnesium Level 1.9 1.6-2.6 mg/dL Total Bilirubin 0.3 0.2-1.0 mg/dL Aspartate Amino Transferase (AST) 16 13-40 U/L Alanine Aminotransferase (ALT) 18 7-40 U/L Alkaline Phosphatase 50 46-116 U/L B-Type Natriuretic Peptide 9.61 0-100 pg/mL Total Protein 6.4 5.7-8.2 g/dL Albumin 4.2 3.2-4.8 g/dL Thyroid Stimulating Hormone (TSH) 2.12 0.55-4.78 uIU/mL Beta HCG, Quantitative 4084.3 H 1.5-4.2 mIU/mL Assessment Recurrent syncopal event Syncope Secondary to ectopic /mass hemorrhage Rule out seizure, less likely 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 Although this document has been carefully reviewed, there may still be some phonetic and typographical errors. These areas are purely typographical due to imperfections of the software programs, and do not reflect any compromise in the patient's medical care. Plan discussed with: Patient, Other YULI LAW MD Sep 20, 2024 22:02
[2024-09-21] VITALS (10 sets, daily range): BP systolic 93–126; BP diastolic 45–63; PULSE 70–102; RESP 16–18; TEMP 97.7–98.4; O2SAT 91–94
[2024-09-21] MEDS: SODIUM CHLORIDE 0.9% 1,000 ML IV SCH (03:03)
[2024-09-21 06:45] LABS: Basophils # (auto) 0 10 ^3/uL (0-0.2); Eosinophils # (auto) 0 10 ^3/uL (0-0.8); Hemoglobin 7.8 g/dL (12.2-16.2); Monocytes # (auto) 0.5 10 ^3/uL (0-1.3); Monocytes % (auto) 6.9 % (0.0-12.0)
[2024-09-21 06:48] LABS: Basophils % (auto) 0.2 % (0.0-2.0); Eosinophils % (auto) 0.1 % (0.0-7.0); Hematocrit 22.7 % (36.0-46.0); Lymphocytes # (auto) 1.5 10 ^3/uL (0.4-5.4); Lymphocytes % (auto) 20.5 % (10.0-50.0); Mean Corpuscular Hemoglobin 29.9 pg (28.0-32.0); Mean Corpuscular Hgb Conc. 34.3 g/dL (32.0-36.0); Mean Corpuscular Volume 87.1 fL (80.0-100.0); Neutrophils # (auto) 5.4 10 ^3/uL (1.6-8.6); Neutrophils % (auto) 72.3 % (37.0-80.0); Nucleated Red Blood Cells % 0.2 %; Platelet Count (auto) 91 10^3/uL (140-450); Red Cell Distribution Width 14.7 % (11.8-14.3); White Blood Cell 7.4 10^3/uL (4.4-10.8)
[2024-09-21 07:05] LABS: Free T3 2.33 pg/mL (2.3-4.2); Free T4 (Free Thyroxine) 1.31 ng/dL (0.89-1.76)
[2024-09-21 07:09] LABS: Alanine Aminotransferase 16 U/L (7-40); Anion Gap 8 (5-15); Aspartate Aminotransferase 15 U/L (13-40); BUN/Creatinine Ratio 9.6 (10.0-20.0); Bilirubin, Total 0.6 mg/dL (0.2-1.0); Carbon Dioxide 21 mmol/L (20-31); Sodium 141 mmol/L (136-145)
[2024-09-21 07:12] LABS: Alkaline Phosphatase 35 U/L (46-116); Blood Urea Nitrogen 5 mg/dL (9-23); Calcium 7.8 mg/dL (8.7-10.4); Chloride 112 mmol/L (98-107); Glucose 115 mg/dL (74-106); Potassium 3.3 mmol/L (3.5-5.1); Total Protein 4.6 g/dL (5.7-8.2)
[2024-09-21 07:15] LABS: INR 1.06 (0.9-1.15); Partial Thromboplastin Time 25.9 SEC (24.5-34.5); Prothrombin Time 11.2 sec (9.3-11.8)
[2024-09-21] MEDS: DOCUSATE SOD 100 MG CAP PO SCH (08:20)
[2024-09-21] MEDS: HYDROcodone-ACET 10/325MG TAB PO PRN (08:20)
[2024-09-21] MEDS: ONDANSETRON HCL 4 MG/2 ML VIAL IV PRN (14:18)
--- NOTE | 2024-09-21 16:02 | DVHPN2 ---
Chief Complaints Patient reports: No new complaints Nursing reports: No new complaints Objective Vitals Vital Signs Date Time Temp Pulse Resp B/P (MAP) Pulse Ox O2 Delivery O2 Flow Rate FiO2 09/21/24 13:00 98.3 99 18 104/62 (76) 94 98.3 09/21/24 08:00 Room Air* 0 21 Medications Current Medications Medications (Trade) Dose Ordered Sig/Yoshi Route PRN Reason Start Time Stop Time Status Last Admin Acetaminophen/ Hydrocodone Bitart ([place] 10/325MG Tab) 1 tab Q4HP PRN PO MODERATE PAIN (4-6 PAIN SCALE) 09/21/24 02:00 09/21/24 12:41 Docusate Sodium (Colace Capsule) 100 mg BID PO 09/21/24 10:00 09/21/24 08:20 Sodium Chloride 1,000 ml @ 150 mls/hr Q6H40M IV 09/21/24 02:30 09/21/24 08:20 General: Normal Head/Eyes: Abnl conjuctiva/sclera Lungs: Normal Cardiovascular: Normal Abdominal: Soft Extremities: Normal Studies Laboratory Tests 09/21/24 05:30 Test 09/21/24 05:30 Range/Units Serum Glucose 115 H 74-106 mg/dL Ass/Plan Assessment s/p expla lap l percipitous drop in hgb due to ruptured ectopi hypotension Plan ambulate ,advance diet supportive care Visit Coding OBGYN Date of Service: Sep 21, 2024 Billing Provider: DAR JAIME DO [employer] Common Visit Codes: [id number] INP/OBS CARE(HIGH) DAR JAIME DO Sep 21, 2024 16:02
--- NOTE | 2024-09-21 20:02 | DVHPN2 ---
Subjective in bed feeling well Changes from previous H/P or p: No Changes Objective Vitals Vital Signs Date Time Temp Pulse Resp B/P (MAP) Pulse Ox O2 Delivery O2 Flow Rate FiO2 09/21/24 17:00 98.4 99 18 106/63 (77) 93 98.4 09/21/24 08:00 Room Air* 0 21 Intake/Output Intake and Output 09/21/24 05:00 Intake Total 2600 ml Output Total 800 ml Balance 1800 ml Intake Oral 0 ml IV Total 1100 ml Blood Product 600 ml Other 900 ml Output Urine Total 800 ml General Appearance: Alert, Oriented X3 HEENT: Atraumatic Lungs: Clear to auscultation Medications Current Medications Medications Dose Ordered Sig/Yoshi Route Start Time Stop Time Status Last Admin Dose Admin Norepinephrine Bitartrate 250 ml @ 3.75 mls/hr Q24H IV 09/19/24 22:00 09/19/24 22:10 3.75 MLS/HR Ondansetron HCl 4 mg Q4HP PRN IV 09/20/24 01:45 09/21/24 14:18 4 MG Cefazolin Sodium 50 ml @ 100 mls/hr Q8HR IV 09/20/24 06:00 09/21/24 14:18 100 MLS/HR Morphine Sulfate 2 mg Q30M PRN IV 09/20/24 03:15 Acetaminophen/ Hydrocodone Bitart 1 tab Q4HP PRN PO 09/21/24 02:00 09/21/24 12:41 1 TAB Docusate Sodium 100 mg BID PO 09/21/24 10:00 09/21/24 08:20 100 MG Sodium Chloride 1,000 ml @ 150 mls/hr Q6H40M IV 09/21/24 02:30 09/21/24 18:11 150 MLS/HR Laboratory Results Laboratory Tests 09/21/24 05:30 Chemistry Test 09/21/24 05:30 Albumin 3.0 g/dL (3.2-4.8) L Calcium Level 7.8 mg/dL (8.7-10.4) L Total Protein 4.6 g/dL (5.7-8.2) L Coagulation Test 09/21/24 05:30 Prothrombin Time 11.2 sec (9.3-11.8) Prothrombin Time INR 1.06 (0.9-1.15) Activated Partial Thromboplast Time 25.9 SEC (24.5-34.5) LFT Test 09/21/24 05:30 Alanine Aminotransferase (ALT) 16 U/L (7-40) Alkaline Phosphatase 35 U/L (46-116) L Aspartate Amino Transferase (AST) 15 U/L (13-40) Total Bilirubin 0.6 mg/dL (0.2-1.0) HgA1c, TSH Test 09/21/24 05:30 Thyroid Stimulating Hormone (TSH) 0.17 uIU/mL (0.55-4.78) L Assessment/Plan Assessment/Plan syncope most likely related to blood loss CT angio and DVT negative continue to monitor Plan discussed with: Patient Date of Service: Sep 21, 2024 Billing Provider: LARRY PHAM MD Common Visit Codes: [id number] INP/OBS CARE(HIGH) LARRY PHAM MD Sep 21, 2024 20:02
[2024-09-21 20:14] LABS: Basophils # (auto) 0 10 ^3/uL (0-0.2); Basophils % (auto) 0.4 % (0.0-2.0); Eosinophils # (auto) 0 10 ^3/uL (0-0.8); Eosinophils % (auto) 0.1 % (0.0-7.0); Hematocrit 23.3 % (36.0-46.0); Hemoglobin 7.8 g/dL (12.2-16.2); Lymphocytes # (auto) 1.9 10 ^3/uL (0.4-5.4); Lymphocytes % (auto) 25.5 % (10.0-50.0); Mean Corpuscular Hemoglobin 29.4 pg (28.0-32.0); Mean Corpuscular Hgb Conc. 33.6 g/dL (32.0-36.0); Mean Corpuscular Volume 87.4 fL (80.0-100.0); Monocytes # (auto) 0.4 10 ^3/uL (0-1.3); Monocytes % (auto) 6.1 % (0.0-12.0); Neutrophils % (auto) 67.9 % (37.0-80.0); Nucleated Red Blood Cells % 0.1 %; Platelet Count (auto) 100 10^3/uL (140-450); Red Blood Cells 2.66 10^6/uL (4.0-5.20); Red Cell Distribution Width 14.7 % (11.8-14.3); White Blood Cell 7.3 10^3/uL (4.4-10.8)
[2024-09-21] MEDS: ACETAMINOPHEN 500 MG TAB or CAP PO PRN (22:18)
--- NOTE | 2024-09-21 22:34 | DVHPN2 ---
Progress Note - Dictate Date Seen: Sep 21, 2024 Medical Necessity Reason Pt with a Central, PICC or Fol: No Subjective Ms. Dominguez is a left-handed female with a history of obesity, fatty liver disease, hypothyroidism, PE, the patient was admitted on 09/19/2024 with a chief company of syncopal events, in the hospital, the patient was found to have ectopic and went through surgical repair on 09/20/2024 I have seen and examined the patient, discussed her and her nurse, the patient was alert and fully oriented, but she was very upset because she was having a lot headache, and when she needed nurse, it took 5 minutes before they were able to respond to her She reports a lot of headache/migraine today, the headaches is worse, when she is up and sleeping in the bed, but is better when she is sitting in the bed The case was discussed with Dr. Quinn and she was agreed the altered mental status was secondary to hypovolemic shock/mass hemorrhage WBC/HB/PLT/MCV, 09/20/2024: 7.7/7.9/120/85.9 PT/INR/PTT, 09/20/2024: 12.5/122/23.4 CMP, 09/19/2024: Unremarkable TSH, 09/19/2024: 2.12 Beta hCG, 09/19/2024: 4084.3 Ultrasound, abdomen, : 1. No intrauterine seen. 2. Intrauterine contraceptive device is noted in the fundus of the uterus. 3. Free fluid noted in the Nice`s pouch, left adnexa and cul-de-sac. 4. Anechoic structure is seen in the left adnexa transabdominally. Heterogeneous structure seen in the left adnexa transvaginally. 5. Suggest CT pelvis plain and contrast correlation. CTA chest, 09/20/2024: 1. No pulmonary embolism is identified. Some of the distal pulmonary arteries cannot be evaluated due to suboptimal opacification. 2. Bilateral lower lobe consolidation vital signs Vital Sign Date Time Temp Pulse Resp B/P (MAP) Pulse Ox O2 Delivery O2 Flow Rate FiO2 09/21/24 20:43 97.7 89 16 126/61 (82) 91 97.7 09/21/24 08:00 Room Air* 0 21 Total Intake and Output 09/20/24 09/20/24 09/21/24 15:00 23:00 07:00 Intake Total 50 ml 900 ml 2225 ml Output Total 750 ml 50 ml Balance 50 ml 150 ml 2175 ml medications Current Medications Medications Dose Ordered Sig/Yoshi Route Start Time Stop Time Status Last Admin Dose Admin Norepinephrine Bitartrate 250 ml @ 3.75 mls/hr Q24H IV 09/19/24 22:00 09/19/24 22:10 3.75 MLS/HR Ondansetron HCl 4 mg Q4HP PRN IV 09/20/24 01:45 09/21/24 21:20 4 MG Cefazolin Sodium 50 ml @ 100 mls/hr Q8HR IV 09/20/24 06:00 09/21/24 14:18 100 MLS/HR Morphine Sulfate 2 mg Q30M PRN IV 09/20/24 03:15 Acetaminophen/ Hydrocodone Bitart 1 tab Q4HP PRN PO 09/21/24 02:00 09/21/24 12:41 1 TAB Docusate Sodium 100 mg BID PO 09/21/24 10:00 09/21/24 08:20 100 MG Sodium Chloride 1,000 ml @ 150 mls/hr Q6H40M IV 09/21/24 02:30 09/21/24 18:11 150 MLS/HR Acetaminophen 500 mg Q6HP PRN PO 09/21/24 22:00 09/21/24 22:18 500 MG objective General: the patient is well developed and nourished. No acute distress. MENTAL STATUS: Awake and alert. Oriented to person, place, time and general circumstances. Able to give personal history. SPEECH, LANGUAGE, HIGHER CORTICAL FUNCTION: no aphasia or dysathria. CRANIAL NERVES: Pupils are equal, round and reactive. EOMs full and conjugate. Facial sensation intact in all three divisions bilaterally. Mandibular strength intact. Facial muscles symmetrical and strength intact. SENSATION: Sensation to touch and pinprick is normal. MOTOR: Normal tone in the upper and lower extremity. Normal muscle bulk. No fasciculations. No abnormal movements or posturing. Muscle strength of the major groups in the extremities is 5/5. REFLEXES: Deep tendon reflexes normal and symmetrical. 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 Although this document has been carefully reviewed, there may still be some phonetic and typographical errors. These areas are purely typographical due to imperfections of the software programs, and do not reflect any compromise in the patient's medical care. Prognosis poor Plan discussed with: Patient, Other Total Time (mins): 35 YULI LAW MD Sep 21, 2024 22:34
[2024-09-22] VITALS (11 sets, daily range): BP systolic 96–111; BP diastolic 51–65; PULSE 65–92; RESP 12–22; TEMP 97.6–98.9; O2SAT 91–100
[2024-09-22] MEDS: KETOROLAC TROMETH 30 MG/ML 1ML VIAL IV ONE (01:13)
[2024-09-22] MEDS: SODIUM CHLORIDE 0.9% 1,000 ML IV SCH (05:15)
[2024-09-22] MEDS: PANTOPRAZOLE 40 MG TAB PO SCH (06:14)
[2024-09-22] MEDS: BISACODYL 10 MG RECT SUPP PR PRN (06:17)
[2024-09-22] MEDS: IBUPROFEN 800 MG TAB PO PRN (06:39)
--- NOTE | 2024-09-22 09:41 | DVHPN2 ---
Subjective Progress Notes Subjective POD#2 s/p ex lap, treatment of ectopic S: Pain controlled. + Flatus Objective PHYSICAL EXAM Physical Exam: Alert, NAD Abd: Obest, Soft, NT, ND Ext SOft, neg Jennifer sign Vital Signs and I&O Vital Signs Date Time Temp Pulse Resp B/P (MAP) Pulse Ox O2 Delivery O2 Flow Rate FiO2 09/22/24 09:04 97.9 68 19 98/55 (69) 99 97.9 09/22/24 08:00 Room Air* 0 99 21 Intake and Output 09/22/24 07:00 Intake Total 2590 ml Output Total 300 ml Balance 2290 ml Intake Oral 1340 ml IV Total 650 ml Blood Product 300 ml Other 300 ml Output Urine Total 300 ml # Voids 1 Lab results Laboratory Tests Test 09/19/24 21:36 09/19/24 22:28 09/19/24 23:22 09/20/24 00:16 Range/Units White Blood Count 8.2 4.4-10.8 10^3/uL Red Blood Count 4.08 4.0-5.20 10^6/uL Hemoglobin 11.6 L 12.2-16.2 g/dL Hematocrit 35.4 L 36.0-46.0 % Mean Corpuscular Volume 86.7 80.0-100.0 fL Mean Corpuscular Hemoglobin 28.5 28.0-32.0 pg Mean Corpuscular Hemoglobin Concent 32.9 32.0-36.0 g/dL Red Cell Distribution Width 14.1 11.8-14.3 % Platelet Count 174 140-450 10^3/uL Mean Platelet Volume 9.7 6.9-10.8 fL Neutrophils (%) (Auto) 63.5 37.0-80.0 % Lymphocytes (%) (Auto) 30.3 10.0-50.0 % Monocytes (%) (Auto) 4.3 0.0-12.0 % Eosinophils (%) (Auto) 1.3 0.0-7.0 % Basophils (%) (Auto) 0.6 0.0-2.0 % Neutrophils # (Auto) 5.2 1.6-8.6 10 ^3/uL Lymphocytes # (Auto) 2.5 0.4-5.4 10 ^3/uL Monocytes # (Auto) 0.4 0-1.3 10 ^3/uL Eosinophils # (Auto) 0.1 0-0.8 10 ^3/uL Basophils # (Auto) 0.1 0-0.2 10 ^3/uL Nucleated Red Blood Cells 0.1 % D-Dimer, Quantitative 0.75 H 0.0-0.49 mg/L FEU Sodium Level 140 136-145 mmol/L Potassium Level 3.3 L 3.5-5.1 mmol/L Chloride Level 108 H 98-107 mmol/L Carbon Dioxide Level 21 20-31 mmol/L Anion Gap 11 5-15 Blood Urea Nitrogen 11 9-23 mg/dL Creatinine 0.78 0.550-1.02 mg/dL Glomerular Filtration Rate Calc 102 >90 mL/min BUN/Creatinine Ratio 14.1 10.0-20.0 Serum Glucose 126 H 74-106 mg/dL Calcium Level 9.3 8.7-10.4 mg/dL Magnesium Level 1.9 1.6-2.6 mg/dL Total Bilirubin 0.3 0.2-1.0 mg/dL Aspartate Amino Transferase (AST) 16 13-40 U/L Alanine Aminotransferase (ALT) 18 7-40 U/L Alkaline Phosphatase 50 46-116 U/L Troponin I High Sensitivity 13 9 9 </=34 ng/L B-Type Natriuretic Peptide 9.61 0-100 pg/mL Total Protein 6.4 5.7-8.2 g/dL Albumin 4.2 3.2-4.8 g/dL Thyroid Stimulating Hormone (TSH) 2.12 0.55-4.78 uIU/mL Beta HCG, Quantitative 4084.3 H 1.5-4.2 mIU/mL Lactic Acid Level 1.2 0.4-2.0 mmol/L Influenza Type A Antigen Negative Negative Influenza Type B Antigen Negative Negative SARS-CoV-2 Antigen (Rapid) Negative NEGATIVE Prothrombin Time 12.5 H 9.3-11.8 sec Prothrombin Time INR 1.20 H 0.9-1.15 Activated Partial Thromboplast Time 23.4 L 24.5-34.5 SEC Test 09/20/24 03:34 09/20/24 10:02 09/21/24 05:30 09/21/24 20:02 Range/Units White Blood Count 13.4 #H 7.7 # 7.4 7.3 4.4-10.8 10^3/uL Red Blood Count 2.48 L 2.76 L 2.60 L 2.66 L 4.0-5.20 10^6/uL Hemoglobin 7.1 #L 7.9 L 7.8 L 7.8 L 12.2-16.2 g/dL Hematocrit 21.5 #L 23.7 #L 22.7 L 23.3 L 36.0-46.0 % Mean Corpuscular Volume 86.5 85.9 87.1 87.4 80.0-100.0 fL Mean Corpuscular Hemoglobin 28.7 28.6 29.9 29.4 28.0-32.0 pg Mean Corpuscular Hemoglobin Concent 33.1 33.3 34.3 33.6 32.0-36.0 g/dL Red Cell Distribution Width 14.3 14.1 14.7 H 14.7 H 11.8-14.3 % Platelet Count 106 L 120 L 91 L 100 L 140-450 10^3/uL Mean Platelet Volume 9.8 9.9 10.6 9.3 6.9-10.8 fL Neutrophils (%) (Auto) 87.9 H 88.5 H 72.3 67.9 37.0-80.0 % Lymphocytes (%) (Auto) 8.0 L 9.1 L 20.5 25.5 10.0-50.0 % Monocytes (%) (Auto) 4.0 2.3 6.9 6.1 0.0-12.0 % Eosinophils (%) (Auto) 0.0 0.0 0.1 0.1 0.0-7.0 % Basophils (%) (Auto) 0.1 0.1 0.2 0.4 0.0-2.0 % Neutrophils # (Auto) 11.8 H 6.8 5.4 5.0 1.6-8.6 10 ^3/uL Lymphocytes # (Auto) 1.1 0.7 1.5 1.9 0.4-5.4 10 ^3/uL Monocytes # (Auto) 0.5 0.2 0.5 0.4 0-1.3 10 ^3/uL Eosinophils # (Auto) 0 0 0 0 0-0.8 10 ^3/uL Basophils # (Auto) 0 0 0 0 0-0.2 10 ^3/uL Nucleated Red Blood Cells 0.0 0.0 0.2 0.1 % Prothrombin Time 11.2 9.3-11.8 sec Prothrombin Time INR 1.06 0.9-1.15 Activated Partial Thromboplast Time 25.9 24.5-34.5 SEC Sodium Level 141 136-145 mmol/L Potassium Level 3.3 L 3.5-5.1 mmol/L Chloride Level 112 H 98-107 mmol/L Carbon Dioxide Level 21 20-31 mmol/L Anion Gap 8 5-15 Blood Urea Nitrogen 5 L 9-23 mg/dL Creatinine 0.52 #L 0.550-1.02 mg/dL Glomerular Filtration Rate Calc 125 >90 mL/min BUN/Creatinine Ratio 9.6 L 10.0-20.0 Serum Glucose 115 H 74-106 mg/dL Calcium Level 7.8 L 8.7-10.4 mg/dL Total Bilirubin 0.6 0.2-1.0 mg/dL Aspartate Amino Transferase (AST) 15 13-40 U/L Alanine Aminotransferase (ALT) 16 7-40 U/L Alkaline Phosphatase 35 L 46-116 U/L Total Protein 4.6 L 5.7-8.2 g/dL Albumin 3.0 L 3.2-4.8 g/dL Thyroid Stimulating Hormone (TSH) 0.17 L 0.55-4.78 uIU/mL Free Thyroxine (T4) Calculated 1.31 0.89-1.76 ng/dL Free Triiodothyronine (T3) pg/mL 2.33 2.3-4.2 pg/mL Assessment and Plan ASSESSMENT AND PLAN Assessment and Plan POD#2 s/p ex lap, tx of ectopic preg Precipitous drop in H/H Plan; Continue supportive care Pain control observe H/H Plan discussed with: Patient Visit Coding OBGYN Date of Service: Sep 22, 2024 Billing Provider: RUBENS HERNANDEZ DO PARARESCUE MANAGER Common Visit Codes: [id number] INP/OBS CARE(MOD) RUBENS HERNANDEZ DO Sep 22, 2024 09:41
[2024-09-22 16:16] LABS: Basophils # (auto) 0 10 ^3/uL (0-0.2); Basophils % (auto) 0.5 % (0.0-2.0); Eosinophils # (auto) 0 10 ^3/uL (0-0.8); Eosinophils % (auto) 0.5 % (0.0-7.0); Hematocrit 25.8 % (36.0-46.0); Hemoglobin 8.6 g/dL (12.2-16.2); Lymphocytes # (auto) 1.5 10 ^3/uL (0.4-5.4); Lymphocytes % (auto) 24.5 % (10.0-50.0); Mean Corpuscular Hemoglobin 29.4 pg (28.0-32.0); Mean Corpuscular Hgb Conc. 33.4 g/dL (32.0-36.0); Mean Corpuscular Volume 87.9 fL (80.0-100.0); Monocytes # (auto) 0.3 10 ^3/uL (0-1.3); Monocytes % (auto) 5.8 % (0.0-12.0); Neutrophils # (auto) 4.1 10 ^3/uL (1.6-8.6); Neutrophils % (auto) 68.7 % (37.0-80.0); Nucleated Red Blood Cells % 0.1 %; Platelet Count (auto) 109 10^3/uL (140-450); Red Blood Cells 2.94 10^6/uL (4.0-5.20); Red Cell Distribution Width 14.9 % (11.8-14.3)
--- NOTE | 2024-09-22 19:05 | DVHPN2 ---
Subjective in bed feeling well Reviewed: Care Plan Changes from previous H/P or p: No Changes Objective Vitals Vital Signs Date Time Temp Pulse Resp B/P (MAP) Pulse Ox O2 Delivery O2 Flow Rate FiO2 09/22/24 17:00 97.6 78 16 111/65 (80) 99 97.6 09/22/24 08:00 Room Air* 0 99 21 Intake/Output Intake and Output 09/22/24 05:00 Intake Total 2815 ml Output Total 300 ml Balance 2515 ml Intake Oral 1340 ml IV Total 1175 ml Other 300 ml Output Urine Total 300 ml # Voids 1 General Appearance: Alert, Oriented X3 HEENT: Atraumatic Lungs: Clear to auscultation Medications Current Medications Medications Dose Ordered Sig/Yoshi Route Start Time Stop Time Status Last Admin Dose Admin Norepinephrine Bitartrate 250 ml @ 3.75 mls/hr Q24H IV 09/19/24 22:00 09/19/24 22:10 3.75 MLS/HR Ondansetron HCl 4 mg Q4HP PRN IV 09/20/24 01:45 09/22/24 10:58 4 MG Cefazolin Sodium 50 ml @ 100 mls/hr Q8HR IV 09/20/24 06:00 09/22/24 15:54 100 MLS/HR Morphine Sulfate 2 mg Q30M PRN IV 09/20/24 03:15 Docusate Sodium 100 mg BID PO 09/21/24 10:00 09/22/24 10:58 100 MG Acetaminophen 500 mg Q6HP PRN PO 09/21/24 22:00 09/21/24 22:18 500 MG Ibuprofen 800 mg Q8HP PRN PO 09/22/24 01:00 09/22/24 15:54 800 MG Pantoprazole Sodium 40 mg DAILY@0600 PO 09/22/24 06:00 09/22/24 06:14 40 MG Bisacodyl 10 mg Q6HPRN PRN [place] 09/22/24 01:00 09/22/24 06:17 10 MG Sodium Chloride 1,000 ml @ 80 mls/hr [id number] IV 09/22/24 05:15 Laboratory Results Laboratory Tests 09/21/24 05:30 09/22/24 15:26 Assessment/Plan Assessment/Plan syncope most likely related to blood loss CT angio and DVT negative continue to monitor Plan discussed with: Patient Date of Service: Sep 22, 2024 Billing Provider: LARRY PHAM MD Common Visit Codes: [id number] INP/OBS CARE(HIGH) LARRY PHAM MD Sep 22, 2024 19:05
[2024-09-22] MEDS ORDERED: KETOROLAC TROMETH 30 MG/ML 1ML VIAL IV PRN (19:45)
[2024-09-22] MEDS: POTASSIUM CHL 20 Meq TABLET PO ONE (22:24)
[2024-09-22] MEDS: KETOROLAC TROMETH 30 MG/ML 1ML VIAL IV PRN (22:26)
[2024-09-23 01:00] VITALS: BP 105/68; PULSE 77; RESP 18; TEMP 98.3; O2SAT 97
[2024-09-23 05:00] VITALS: BP 98/56; PULSE 86; RESP 20; TEMP 98.1; O2SAT 97
--- NOTE | 2024-09-23 07:54 | DVHPN2 ---
Subjective Progress Notes Subjective post op ex lap for ectopic with hemoperitoneum Patient c/o cough with colored sputum since last night. No fever/ chills. CXR previously showed atelectasis Pain is controlled. No symptoms of anemia Objective PHYSICAL EXAM Physical Exam: Alert, NAD Abd Soft, NT, incision C/D/I Ext soft, NT Vital Signs and I&O Vital Signs Date Time Temp Pulse Resp B/P (MAP) Pulse Ox O2 Delivery O2 Flow Rate FiO2 09/23/24 05:00 98.1 86 20 98/56 (70) 97 98.1 09/22/24 20:00 Room Air* 0 21 Intake and Output 09/23/24 07:00 Intake Total 1895 ml Output Total 800 ml Balance 1095 ml Intake Oral 1745 ml IV Total 150 ml Output Urine Total 800 ml # Voids 5 # Bowel Movements 3 Lab results Laboratory Tests Test 09/19/24 21:36 09/19/24 22:28 09/19/24 23:22 09/20/24 00:16 Range/Units White Blood Count 8.2 4.4-10.8 10^3/uL Red Blood Count 4.08 4.0-5.20 10^6/uL Hemoglobin 11.6 L 12.2-16.2 g/dL Hematocrit 35.4 L 36.0-46.0 % Mean Corpuscular Volume 86.7 80.0-100.0 fL Mean Corpuscular Hemoglobin 28.5 28.0-32.0 pg Mean Corpuscular Hemoglobin Concent 32.9 32.0-36.0 g/dL Red Cell Distribution Width 14.1 11.8-14.3 % Platelet Count 174 140-450 10^3/uL Mean Platelet Volume 9.7 6.9-10.8 fL Neutrophils (%) (Auto) 63.5 37.0-80.0 % Lymphocytes (%) (Auto) 30.3 10.0-50.0 % Monocytes (%) (Auto) 4.3 0.0-12.0 % Eosinophils (%) (Auto) 1.3 0.0-7.0 % Basophils (%) (Auto) 0.6 0.0-2.0 % Neutrophils # (Auto) 5.2 1.6-8.6 10 ^3/uL Lymphocytes # (Auto) 2.5 0.4-5.4 10 ^3/uL Monocytes # (Auto) 0.4 0-1.3 10 ^3/uL Eosinophils # (Auto) 0.1 0-0.8 10 ^3/uL Basophils # (Auto) 0.1 0-0.2 10 ^3/uL Nucleated Red Blood Cells 0.1 % D-Dimer, Quantitative 0.75 H 0.0-0.49 mg/L FEU Sodium Level 140 136-145 mmol/L Potassium Level 3.3 L 3.5-5.1 mmol/L Chloride Level 108 H 98-107 mmol/L Carbon Dioxide Level 21 20-31 mmol/L Anion Gap 11 5-15 Blood Urea Nitrogen 11 9-23 mg/dL Creatinine 0.78 0.550-1.02 mg/dL Glomerular Filtration Rate Calc 102 >90 mL/min BUN/Creatinine Ratio 14.1 10.0-20.0 Serum Glucose 126 H 74-106 mg/dL Calcium Level 9.3 8.7-10.4 mg/dL Magnesium Level 1.9 1.6-2.6 mg/dL Total Bilirubin 0.3 0.2-1.0 mg/dL Aspartate Amino Transferase (AST) 16 13-40 U/L Alanine Aminotransferase (ALT) 18 7-40 U/L Alkaline Phosphatase 50 46-116 U/L Troponin I High Sensitivity 13 9 9 </=34 ng/L B-Type Natriuretic Peptide 9.61 0-100 pg/mL Total Protein 6.4 5.7-8.2 g/dL Albumin 4.2 3.2-4.8 g/dL Thyroid Stimulating Hormone (TSH) 2.12 0.55-4.78 uIU/mL Beta HCG, Quantitative 4084.3 H 1.5-4.2 mIU/mL Lactic Acid Level 1.2 0.4-2.0 mmol/L Influenza Type A Antigen Negative Negative Influenza Type B Antigen Negative Negative SARS-CoV-2 Antigen (Rapid) Negative NEGATIVE Prothrombin Time 12.5 H 9.3-11.8 sec Prothrombin Time INR 1.20 H 0.9-1.15 Activated Partial Thromboplast Time 23.4 L 24.5-34.5 SEC Test 09/20/24 03:34 09/20/24 10:02 09/21/24 05:30 09/21/24 20:02 Range/Units White Blood Count 13.4 #H 7.7 # 7.4 7.3 4.4-10.8 10^3/uL Red Blood Count 2.48 L 2.76 L 2.60 L 2.66 L 4.0-5.20 10^6/uL Hemoglobin 7.1 #L 7.9 L 7.8 L 7.8 L 12.2-16.2 g/dL Hematocrit 21.5 #L 23.7 #L 22.7 L 23.3 L 36.0-46.0 % Mean Corpuscular Volume 86.5 85.9 87.1 87.4 80.0-100.0 fL Mean Corpuscular Hemoglobin 28.7 28.6 29.9 29.4 28.0-32.0 pg Mean Corpuscular Hemoglobin Concent 33.1 33.3 34.3 33.6 32.0-36.0 g/dL Red Cell Distribution Width 14.3 14.1 14.7 H 14.7 H 11.8-14.3 % Platelet Count 106 L 120 L 91 L 100 L 140-450 10^3/uL Mean Platelet Volume 9.8 9.9 10.6 9.3 6.9-10.8 fL Neutrophils (%) (Auto) 87.9 H 88.5 H 72.3 67.9 37.0-80.0 % Lymphocytes (%) (Auto) 8.0 L 9.1 L 20.5 25.5 10.0-50.0 % Monocytes (%) (Auto) 4.0 2.3 6.9 6.1 0.0-12.0 % Eosinophils (%) (Auto) 0.0 0.0 0.1 0.1 0.0-7.0 % Basophils (%) (Auto) 0.1 0.1 0.2 0.4 0.0-2.0 % Neutrophils # (Auto) 11.8 H 6.8 5.4 5.0 1.6-8.6 10 ^3/uL Lymphocytes # (Auto) 1.1 0.7 1.5 1.9 0.4-5.4 10 ^3/uL Monocytes # (Auto) 0.5 0.2 0.5 0.4 0-1.3 10 ^3/uL Eosinophils # (Auto) 0 0 0 0 0-0.8 10 ^3/uL Basophils # (Auto) 0 0 0 0 0-0.2 10 ^3/uL Nucleated Red Blood Cells 0.0 0.0 0.2 0.1 % Prothrombin Time 11.2 9.3-11.8 sec Prothrombin Time INR 1.06 0.9-1.15 Activated Partial Thromboplast Time 25.9 24.5-34.5 SEC Sodium Level 141 136-145 mmol/L Potassium Level 3.3 L 3.5-5.1 mmol/L Chloride Level 112 H 98-107 mmol/L Carbon Dioxide Level 21 20-31 mmol/L Anion Gap 8 5-15 Blood Urea Nitrogen 5 L 9-23 mg/dL Creatinine 0.52 #L 0.550-1.02 mg/dL Glomerular Filtration Rate Calc 125 >90 mL/min BUN/Creatinine Ratio 9.6 L 10.0-20.0 Serum Glucose 115 H 74-106 mg/dL Calcium Level 7.8 L 8.7-10.4 mg/dL Total Bilirubin 0.6 0.2-1.0 mg/dL Aspartate Amino Transferase (AST) 15 13-40 U/L Alanine Aminotransferase (ALT) 16 7-40 U/L Alkaline Phosphatase 35 L 46-116 U/L Total Protein 4.6 L 5.7-8.2 g/dL Albumin 3.0 L 3.2-4.8 g/dL Thyroid Stimulating Hormone (TSH) 0.17 L 0.55-4.78 uIU/mL Free Thyroxine (T4) Calculated 1.31 0.89-1.76 ng/dL Free Triiodothyronine (T3) pg/mL 2.33 2.3-4.2 pg/mL Test 09/22/24 15:26 Range/Units White Blood Count 6.0 4.4-10.8 10^3/uL Red Blood Count 2.94 L 4.0-5.20 10^6/uL Hemoglobin 8.6 L 12.2-16.2 g/dL Hematocrit 25.8 #L 36.0-46.0 % Mean Corpuscular Volume 87.9 80.0-100.0 fL Mean Corpuscular Hemoglobin 29.4 28.0-32.0 pg Mean Corpuscular Hemoglobin Concent 33.4 32.0-36.0 g/dL Red Cell Distribution Width 14.9 H 11.8-14.3 % Platelet Count 109 L 140-450 10^3/uL Mean Platelet Volume 9.7 6.9-10.8 fL Neutrophils (%) (Auto) 68.7 37.0-80.0 % Lymphocytes (%) (Auto) 24.5 10.0-50.0 % Monocytes (%) (Auto) 5.8 0.0-12.0 % Eosinophils (%) (Auto) 0.5 0.0-7.0 % Basophils (%) (Auto) 0.5 0.0-2.0 % Neutrophils # (Auto) 4.1 1.6-8.6 10 ^3/uL Lymphocytes # (Auto) 1.5 0.4-5.4 10 ^3/uL Monocytes # (Auto) 0.3 0-1.3 10 ^3/uL Eosinophils # (Auto) 0 0-0.8 10 ^3/uL Basophils # (Auto) 0 0-0.2 10 ^3/uL Nucleated Red Blood Cells 0.1 % Assessment and Plan ASSESSMENT AND PLAN Assessment and Plan Ectopic preg s/p ex lap salpingectomy POD#3 post op cough, not pneumonia (atelectasis) Precipitous drop in H/H, s/p 3units PRBC (hemodynamically stable) Plan D/C planning Cough syrup PRN Pain control. Plan discussed with: Patient Visit Coding OBGYN Date of Service: Sep 23, 2024 Billing Provider: RUBENS HERNANDEZ DO RESAWYER Common Visit Codes: [id number] INP/OBS CARE(MOD) RUBENS HERNANDEZ DO Sep 23, 2024 07:54
[2024-09-23] MEDS ORDERED: AZIT500T66 PO (07:57)
[2024-09-23] MEDS ORDERED: DEXT1SYP9 GT (07:58)
[2024-09-23 08:00] VITALS: PULSE 67; PULSE 95; RESP 22; O2SAT 91
--- NOTE | 2024-09-23 08:40 | DVHPN2 ---
Chief Complaints Patient reports: No new complaints, Feels better Nursing reports: No new complaints Objective Vitals Vital Signs Date Time Temp Pulse Resp B/P (MAP) Pulse Ox O2 Delivery O2 Flow Rate FiO2 09/23/24 05:00 98.1 86 20 98/56 (70) 97 98.1 09/22/24 20:00 Room Air* 0 21 Medications Current Medications Medications (Trade) Dose Ordered Sig/Yoshi Route PRN Reason Start Time Stop Time Status Last Admin Ketorolac Tromethamine (Toradol Injection) 15 mg BID PRN IV SEVERE PAIN (7-10 PAIN SCALE) 09/22/24 20:45 09/27/24 19:44 09/22/24 22:26 General: Normal Head/Eyes: Abnl conjuctiva/sclera Lungs: Normal Cardiovascular: Normal Abdominal: Soft Extremities: Normal Studies Laboratory Tests 09/22/24 15:26 09/21/24 05:30 Test 09/21/24 05:30 Range/Units Serum Glucose 115 H 74-106 mg/dL Ass/Plan Assessment s/p expla lap l percipitous drop in hgb due to ruptured ectopi hypotension Plan DC HOME FU THIS TUE 9 AM Visit Coding OBGYN Date of Service: Sep 23, 2024 Billing Provider: DAR JAIME DO LOCAL COORDINATOR Common Visit Codes: [id number] INP/OBS CARE(LOW) LOCAL COORDINATOR Consultation Codes: [id number] INPATIENT CONSULT (HIGH) DAR JAIME DO Sep 23, 2024 08:40
--- NOTE | 2024-09-23 08:43 | DVHDS2 ---
Physician Discharge Progress N Final Diagnosis: RUPTURED ECTOPIC,HEMOPERITONEUM,HEMMORHAGIC SHOCK,AMA,MORBID OBESITY ,HX OF HYPERTHYROIDISM,HX OF PE,ANEMIA Operations or Procedures: Operations or Procedures EXPL LAP ,REMOVAL OF IUD,LEFT SALPINGECTOMY,EVACUATION OF HEMOPERITONUM Condition on Discharge: Good Disposition: Home Discharge Instructions: Diet: Regular Activity: Light activity Medications: ZOFRAN,NORCO Follow Up Care: Specialist: TUE 9AM Discharge Statement: "Patient was advised to return to the ER or call 911 if any headaches, dizziness, shortness of breath, chest pain, abdominal pain, bleeding, fevers, or worsening of medical condition. Patient was counseled about treatment plan, medications, possible side effects, patientverbalized understanding. All questions were answered to the best of my ability. This discharge took greater then 30 minutes in planning, reviewing documentation, counseling the patient, and discussing with other team members." Visit Coding OBGYN Date of Service: Sep 23, 2024 Billing Provider: DAR JAIME DO INSURANCE CLAIM REPRESENTATIVE Common Visit Codes: [id number] SAME DATE (HIGH) INSURANCE CLAIM REPRESENTATIVE Procedure Codes: [id number]: W/SALPINGOSTOMY DAR JAIME DO Sep 23, 2024 08:43
[2024-09-23 09:00] VITALS: BP 101/56; PULSE 67; RESP 20; TEMP 98.1; O2SAT 97
[2024-09-23 11:50] VITALS: BP 101/56; PULSE 67; RESP 18; TEMP 36.7; O2SAT 97
[2024-09-23 13:00] VITALS: BP 108/59; PULSE 77; RESP 20; TEMP 98.4; O2SAT 98
== END 2024-09-23 14:20 | disposition home or self-care (01) | DRG 547 ==
LOC: EDBD 21:08 → ER 21:08 → TELE 09-20 03:05 → TELE-CENTR 09-20 04:08
PROVIDERS: ADMIT Obstetrics & Gynecology; ATTEND Hospitalist
PROC: 0UPD7HZ Removal of Contraceptive Device from Uterus and Cervix, Via Natural or Artificial Opening (ICD-10-PCS; 2024-09-20)
PROC: 30233N1 Transfusion of Nonautologous Red Blood Cells into Peripheral Vein, Percutaneous Approach (ICD-10-PCS; 2024-09-20)
PROC: 0UB60ZZ Excision of Left Fallopian Tube, Open Approach (ICD-10-PCS; 2024-09-20)
PROC: 10T20ZZ Resection of Products of Conception, Ectopic, Open Approach (ICD-10-PCS; principal; 2024-09-20 02:03)
DX: O00.90 Unspecified ectopic pregnancy without intrauterine pregnancy (principal); K66.1 Hemoperitoneum; K76.0 Fatty (change of) liver, not elsewhere classified; I95.9 Hypotension, unspecified; R71.0 Precipitous drop in hematocrit; E86.1 Hypovolemia; E66.01 Morbid (severe) obesity due to excess calories; G43.909 Migraine, unspecified, not intractable, without status migrainosus; I10 Essential (primary) hypertension; J98.11 Atelectasis; Z82.49 Family history of ischemic heart disease and other diseases of the circulatory system; Z83.3 Family history of diabetes mellitus; Z86.711 Personal history of pulmonary embolism; E05.90 Thyrotoxicosis, unspecified without thyrotoxic crisis or storm
CPT/HCPCS: 36415; 71045; 71275; 76801; 80053; 83605; 83735; 83880; 84439; 84443; 84481; 84484; 84702; 85025; 85379; 85610; 85730; 86850; 86900; 86901; 86920; 87426; 87804; 93005; 93970; 96365; 96375; G0378; J0131; J0330; J1100; J1885; J2003; J2405; J2704

== ENCOUNTER 2024-10-29 15:02 | Inpatient (IN) | payer MEDICAID, OTHER ==
[~2024-10-29] VITALS: Ht 170.2 cm; Wt 115.3 kg
[~2024-10-29 15:02] MED LIST: AZIT500T66 PO; CEPH500T PO; DEXT1SYP9 GT; DOCU-94 PO; HYDR-4072 PO; IBUP-1456 PO; ZOFR4T PO
[2024-10-29 15:30] VITALS: TEMP 97.8
--- NOTE | 2024-10-29 15:43 | ED.PDOC ---
History of Present Illness HPI Comments 34-year-old female came to the ER complaining of abdominal pain which started three days ago progressively getting worse. Denies nausea vomiting diarrhea. She states the abdominal pain is 5/10 radiating across the suprapubic area. She did have ectopic on September 19 for which she was seen at this hospital admitted for five days. Denies any other symptoms. Chief Complaint: Abdominal Pain Time Seen by MD: 15:06 Reviewed Notes: Nurses Notes, Medications, Allergies Allergies: Coded Allergies: NO KNOWN ALLERGIES (Unverified , 09/19/24) Home Meds Active Scripts Dextromethorphan-Guaifenesin (Robitussin-Dm) 10 Ml Sr, 10 ML GT Q6HPRN PRN for 5 Days, #120 SYP Prov:IRLANDARUBENS BURLESON Lin DO 09/23/24 Azithromycin (Azithromycin) 500 Mg Tab, 250 MG PO DAILY for 5 Days, #5 TAB Prov:IRLANDARUBENS BURLESON Lin DO 09/23/24 Ondansetron Odt 4MG Tab (ZOFRAN PO) 4 Mg Tb, 4 MG PO Q4HPRN PRN for 7 Days, #35 TAB ODT TAB-DISSOLVE IN MOUTH, THEN SWALLOW Prov:ADR JAIME DO 09/20/24 Ibuprofen (Ibuprofen) 800 Mg Tab, 800 MG PO TID PRN for 4 Days, #12 TAB Prov:DAR JAIME DO 09/20/24 Hydrocodone-Acetaminophen (Hydrocodone/Acetaminophen 10-325 mg) 1 Tab Tab, 1 TAB PO Q6HPRN PRN for 7 Days, #28 TAB Prov:DAR JAIME DO 09/20/24 Docusate Sodium (Colace) 100 Mg Cap, 1 CAP PO BID, #60 CAP 2 Refills Prov:DAR JAIME DO 09/20/24 Cephalexin Monohydrate (Cephalexin) 500 Mg Tab, 1 TAB PO QID for 7 Days, #28 TAB Prov:DAR JAIME DO 09/20/24 Information Source: Patient Mode of Arrival: Ambulatory Severity: Moderate Timing: Days Duration: Since onset Past Medical History PAST MEDICAL HISTORY: Denies Surgical History: Denies all surgeries IT SUPPORT ENGINEER History: No Pertinent IT SUPPORT ENGINEER History Family History Family History: Reviewed,noncontributory to illness, No family hx of Cancer, No family hx of DM, No family hx of Heart eleonora, No family hx of HTN, No family hx ofKidney eleonora, No family hx of Liver eleonora, No family hx of Lung eleonora, No family hx of Stroke Social History Smoker: Non-Smoker Alcohol: Denies ETOH Use Drugs: Denies Drug Use Lives In: Home Constitutional: denies: chills, diaphoresis, fatigue, fever, malaise, sweats, weakness, others EENTM: denies: blurred vision, double vision, ear bleeding, ear discharge, ear drainage, ear pain, ear ringing, eye pain, eye redness, hearing loss, mouth pain, mouth swelling, nasal discharge, nose bleeding, nose congestion, nose pain, photophobia, tearing, throat pain, throat swelling, voice changes, others Respiratory: denies: cough, hemoptysis, orthopnea, SOB at rest, shortness of breath, SOB with excertion, stridor, wheezing, others Cardiovascular: denies: chest pain, dizzy spells, diaphoresis, Dyspnea on exertion, edema, irregular heart beat, left arm pain, lightheadedness, palpitations, PND, syncope, others Gastrointestinal: reports: abdominal pain; denies: abdomen distended, blood streaked bowels, constipated, diarrhea, dysphagia, difficulty swallowing, hematemesis, melena, nausea, poor appetite, poor fluid intake, rectal bleeding, rectal pain, vomiting, others Genitourinary: denies: abnormal vagina bleeding, burning, dyspareunia, dysuria, flank pain, frequency, hematuria, incontinence, pain, , vagina discharge, urgency, others Neurological: denies: dizziness, fainting, headache, left sided numbness, left sided weakness, numbness, paresthesia, pre-existing deficit, right sided numbness, right sided weakness, seizure, speech problems, tingling, tremors, weakness, others Musculoskeletal: denies: back pain, gout, joint pain, joint swelling, muscle pain, muscle stiffness, neck pain, others Integumetry: denies: bruises, change in color, change in hair/nails, dryness, laceration, lesions, lumps, rash, wounds, others Allergic/Immunocompromised: denies: Difficulty Healing, Frequent Infections, Hives, Itching, others Hematologic/Lymphatic: denies: anemia, blood clots, easy bleeding, easy bruising, swollen glands, others Endocrine: denies: excessive hunger, excessive sweating, excessive thirst, excessive urination, flushing, intolerance to cold, intolerance to heat, unexplained weight gain, unexplained weight loss, others Psychiatric: denies: anxiety, bipolar disorder, depression, hopeless, panic disorder, schizophrenia, sleepless, suicidal, others Physical Exam General Appearance: Moderate Distress HEENT: Normal ENT Inspection, Pharynx Normal, TMs Normal Neck: Full Range of Motion, Non-Tender, Normal, Normal Inspection Respiratory: Chest Non-Tender, Lungs Clear, No Accessory Muscle Use, No Respiratory Distress, Normal Breath Sounds Cardiovascular: No Edema, No JVD, No Murmur, No Gallop, Normal Peripheral Pulses, Regular Rate/Rhythm Breast Exam: Deferred Gastrointestinal: No Organomegaly, Non Tender, No Pulsatile Mass, Normal Bowel Sounds, Soft Genitalia: Deferred Pelvic: Deferred Rectal: Deferred Extremities: No calf tenderness, Normal capillary refill, Normal inspection, Normal range of motion, Non-tender, No pedal edema Musculoskeletal : Apperance: Normal Neurologic: Alert, customs brokerage agent II-XII nml as Tested, No Motor Deficits, Normal Affect, Normal Mood, No Sensory Deficits Cerebellar Function: Normal Reflexes: Normal Skin: Dry, Normal Color, Warm Peripheral Pulses: 3+ Radial (R), 3+ Radial (L) Lymphatic: No Adenopathy Was a procedure done? Was a procedure done?: No Differential Dx Considerations may include: Anemia Urinary tract infection X-Ray, Labs, Meds, VS Vital Signs Date Time Temp Pulse Resp B/P (MAP) Pulse Ox O2 Delivery O2 Flow Rate FiO2 10/29/24 15:30 97.8 68 18 116/90 (99) 98 97.8 Lab Test 10/29/24 15:43 Range/Units White Blood Count 5.9 4.4-10.8 10^3/uL Red Blood Count 4.51 4.0-5.20 10^6/uL Hemoglobin 12.4 12.2-16.2 g/dL Hematocrit 37.4 36.0-46.0 % Mean Corpuscular Volume 83.0 80.0-100.0 fL Mean Corpuscular Hemoglobin 27.6 L 28.0-32.0 pg Mean Corpuscular Hemoglobin Concent 33.2 32.0-36.0 g/dL Red Cell Distribution Width 14.9 H 11.8-14.3 % Platelet Count 177 140-450 10^3/uL Mean Platelet Volume 8.7 6.9-10.8 fL Neutrophils (%) (Auto) 65.5 37.0-80.0 % Lymphocytes (%) (Auto) 27.0 10.0-50.0 % Monocytes (%) (Auto) 5.5 0.0-12.0 % Eosinophils (%) (Auto) 1.4 0.0-7.0 % Basophils (%) (Auto) 0.6 0.0-2.0 % Neutrophils # (Auto) 3.8 1.6-8.6 10 ^3/uL Lymphocytes # (Auto) 1.6 0.4-5.4 10 ^3/uL Monocytes # (Auto) 0.3 0-1.3 10 ^3/uL Eosinophils # (Auto) 0.1 0-0.8 10 ^3/uL Basophils # (Auto) 0 0-0.2 10 ^3/uL Nucleated Red Blood Cells 0.1 % Sodium Level 141 136-145 mmol/L Potassium Level 3.7 3.5-5.1 mmol/L Chloride Level 108 H 98-107 mmol/L Carbon Dioxide Level 26 20-31 mmol/L Anion Gap 7 5-15 Blood Urea Nitrogen 8 L 9-23 mg/dL Creatinine 0.77 0.550-1.02 mg/dL Glomerular Filtration Rate Calc 104 >90 mL/min BUN/Creatinine Ratio 10.4 10.0-20.0 Serum Glucose 84 74-106 mg/dL Calcium Level 9.6 8.7-10.4 mg/dL Patient alert. Complaining of suprapubic pain. Vitals stable. Answering all questions. Reviewed her previous visit. Patient continues to have abdominal pain. CT scan of the abdomen does show colitis. Was given Rocephin. Was given Flagyl. Was given morphine. Explained to the patient. Time of 1ST Reevaluation: 15:42 Reevaluation 1ST: Unchanged Patient Education/Counseling: Diagnosis, Treatment, Prognosis, Need For Follow Up Family Education/Counseling: No Family Present Departure 1 Departure Time of Disposition: 15:43 Impression: Primary Impression: Acute abdominal pain Additional Impression: Non-specific colitis Disposition: 09 ADMITTED INPATIENT Admit to: Med Surg Condition: Guarded Critical Care Note Critical Care Time?: No Stability Stability form required: No Heart Score Heart Score: Heart Score Response (Comments) Value History N/A 0 EKG N/A 0 Age N/A 0 Risk Factors N/A 0 Troponin N/A 0 Total 0 ANITA BALLESTEROS MD Oct 29, 2024 15:43
[2024-10-29 16:00] LABS: Basophils # (auto) 0 10 ^3/uL (0-0.2); Basophils % (auto) 0.6 % (0.0-2.0); Eosinophils # (auto) 0.1 10 ^3/uL (0-0.8); Eosinophils % (auto) 1.4 % (0.0-7.0); Hematocrit 37.4 % (36.0-46.0); Hemoglobin 12.4 g/dL (12.2-16.2); Lymphocytes # (auto) 1.6 10 ^3/uL (0.4-5.4); Mean Corpuscular Hemoglobin 27.6 pg (28.0-32.0); Mean Corpuscular Hgb Conc. 33.2 g/dL (32.0-36.0); Monocytes # (auto) 0.3 10 ^3/uL (0-1.3); Monocytes % (auto) 5.5 % (0.0-12.0); Neutrophils # (auto) 3.8 10 ^3/uL (1.6-8.6); Neutrophils % (auto) 65.5 % (37.0-80.0); Nucleated Red Blood Cells % 0.1 %; Platelet Count (auto) 177 10^3/uL (140-450); Red Blood Cells 4.51 10^6/uL (4.0-5.20); Red Cell Distribution Width 14.9 % (11.8-14.3); White Blood Cell 5.9 10^3/uL (4.4-10.8)
[2024-10-29 16:07] LABS: Potassium 3.7 mmol/L (3.5-5.1); Sodium 141 mmol/L (136-145)
--- NOTE | 2024-10-29 16:07 | DVH ---
Exam: CT CT AB PEL WO CON-NO ORAL OR IV History: colitis Comparison Study: None available at time of dictation. TECHNIQUE: Multidetector CT of the abdomen was performed from lung bases to pubic symphysis. Imaging was performed without IV contrast. Axial, coronal and sagittal multiplanar reformats were obtained fr om the axial data set by the technologist. Radiation Dose Information: CT Dose: CTDI volume is 24.76 mGy. Dose-length product is 1560.07 mGy*cm FINDINGS: Evaluation of solid organs is limited due to lack of intravenous contrast use. Findings: Lung Bases: No acute or significant lung base finding. Normal heart size. No pleural or pericardial effusion. Liver: The liver is normal in size. No focal lesions. Gallbladder and Biliary Tree: Gallbladder has been surgically removed. Spleen: Unremarkable Pancreas: The pancreas is grossly normal in appearance. Adrenal Glands: Unremarkable Kidneys: Kidneys are grossly normal without calculi or hydronephrosis. Bladder: Grossly unremarkable for degree of distention. Bowel: The stomach is grossly normal in appearance. Small bowel is normal in caliber and distribution . Mucosal thickening is noted of the proximal transverse colon intermittently through the left colon. Segmental colitis may be etiology. The appendix is not visualized; however, no secondary findings o f acute appendicitis identified. Ascites: Absent Lymphadenopathy: No mesenteric, retroperitoneal or periportal lymphadenopathy. Abdominal Wall and Mesentery: Unremarkable. Vasculature: The visualized abdominal aorta is normal in size and caliber. Evaluation of abdominal a nd pelvic vessels is limited due to lack of intravenous contrast. Pelvic Organs: Unremarkable Musculoskeletal: No aggressive focal bony lesions, acute fractures or dislocation. Soft tissues: Unremarkable IMPRESSION: 1. No findings to suggest bowel obstruction. 2. Mucosal thickening throughout the proximal transverse and intermittently through the left colon menendez ggesting the possibility of regional colitis. Consider follow-up. Radiation optimization: All CT scans at this facility use at least one of these dose optimization tim hniques: automated exposure control mA and/or kV adjustment per patient size (includes targeted exam s where dose is matched to clinical indication) or iterative reconstruction.
[2024-10-29 16:08] LABS: Anion Gap 7 (5-15); Carbon Dioxide 26 mmol/L (20-31)
[2024-10-29 16:09] LABS: Calcium 9.6 mg/dL (8.7-10.4); Chloride 108 mmol/L (98-107)
[2024-10-29 16:13] LABS: BUN/Creatinine Ratio 10.4 (10.0-20.0); Glucose 84 mg/dL (74-106)
[2024-10-29 16:15] LABS: Blood Urea Nitrogen 8 mg/dL (9-23)
[2024-10-29] MEDS: cefTRIAXone 1GM/50ML D5W 50 ML IV ONE (17:56)
[2024-10-29 17:57] VITALS: PULSE 77; RESP 16; O2SAT 97
[2024-10-29] MEDS: metroNIDAZOLE 500MG/100ML 100 ML IV ONE (18:02)
[2024-10-29] MEDS: MORPHINE SULFATE INJ 2 MG/ml SYRG IV ONE (18:02)
[2024-10-29] MEDS: ONDANSETRON HCL 4 MG/2 ML VIAL IV ONE (18:02)
[2024-10-29 19:04] VITALS: BP 121/71; PULSE 73; RESP 16; O2SAT 99
[2024-10-29] MEDS ORDERED: ONDANSETRON HCL 4 MG/2 ML VIAL IV PRN (20:00)
[2024-10-29] MEDS ORDERED: HYDROcodone-ACET 5/325MG TAB PO PRN (20:00)
[2024-10-29] MEDS ORDERED: ACETAMINOPHEN 325 MG TAB PO PRN (20:00)
[2024-10-29 20:02] LABS: Urine Bacteria FEW /hpf (None Seen); Urine Blood Negative /uL (Negative); Urine Clarity Turbid (Clear); Urine Color Yellow (Yellow); Urine Mucus FEW (None Seen); Urine Protein, UAD TRACE (Negative); Urine Specific Gravity 1.029 (1.001-1.035); Urine Squamous Epithelial Cell MOD /hpf (<5); Urine Urobilinogen Normal (Negative); Urine WBC 6 /HPF (0-5); Urine pH 5.5 (5.0-9.0)
[2024-10-29] MEDS ORDERED: metroNIDAZOLE 500MG/100ML 100 ML IV SCH (22:00)
--- NOTE | 2024-10-29 22:11 | DVHHP2 ---
History of Present Illness Reason for Visit: Abdominal pain History of Present Illness 34-year-old female presents for evaluation of abdominal pain. Patient endorses a three day history of lower abdominal pain with associated nausea. Denies fever or diarrhea. No cardiac or respiratory complaints. Past Medical History Denies Past Surgical History None Family History Noncontributory Smoke: No ALCOHOL: none Drugs: None Lives: with Family Review of Systems Review of Systems Review of systems are currently negative otherwise addressed in HPI. Allergies: Coded Allergies: NO KNOWN ALLERGIES (Unverified , 09/19/24) Medications Current Medications Medications Dose Ordered Sig/Yoshi Route Start Time Stop Time Status Last Admin Dose Admin Ceftriaxone Sodium 50 ml @ 100 mls/hr DAILY@09 IV 10/30/24 09:00 Metronidazole 100 ml @ 100 mls/hr Q8HR IV 10/29/24 22:00 Pantoprazole Sodium 40 mg DAILY@0600 PO 10/30/24 06:00 Acetaminophen/ Hydrocodone Bitart 1 tab Q4HP PRN PO 10/29/24 20:00 Ondansetron HCl 4 mg Q4HP PRN IV 10/29/24 20:00 Acetaminophen 650 mg Q6HP PRN PO 10/29/24 20:00 Exam Vital Signs Vital Signs Date Time Temp Pulse Resp B/P (MAP) Pulse Ox O2 Delivery O2 Flow Rate FiO2 10/29/24 19:04 73 16 121/71 10/29/24 19:04 99 10/29/24 17:57 Room Air* 0 21 10/29/24 15:30 97.8 97.8 Exam Gen: 34-year-old female in mild distress Skin: Warm, dry, normal color and texture, no rash. HEENT: Normocephalic atraumatic, mucous membranes moist and pink. Neck: Cervical and supraclavicular nodes normal without enlargement, trachea is midline, thyroid gland is normal without masses. Pulmonary: Clear to auscultation and percussion bilaterally. Cardiac: Regular rate and rhythm. No murmur Abdomen: Soft, abdominal tenderness, nondistended, bowel sounds present all 4 quadrants, no guarding, no rigidity, no organomegaly. Extremities: No cyanosis, clubbing, no edema Neuro: Cranial nerves II through XII grossly intact, normal affect and speech, no focal motor deficits. Labs/Xrays ORDERING PHYSICIAN: ANITA BALLESTEROS MD PROCEDURE(s): ABPL - CT AB PEL WO CON-NO ORAL OR IV REASON: colitis ORDER NUMBER(s): [id number], ACCESSION NUMBER(s): [id number] Exam: CT CT AB PEL WO CON-NO ORAL OR IV History: colitis Comparison Study: None available at time of dictation. TECHNIQUE: Multidetector CT of the abdomen was performed from lung bases to pubic symphysis. Imaging was performed without IV contrast. Axial, coronal and sagittal multiplanar reformats were obtained from the axial data set by the technologist. Radiation Dose Information: CT Dose: CTDI volume is 24.76 mGy. Dose-length product is 1560.07 mGy*cm FINDINGS: Evaluation of solid organs is limited due to lack of intravenous contrast use. Findings: Lung Bases: No acute or significant lung base finding. Normal heart size. No pleural or pericardial effusion. Liver: The liver is normal in size. No focal lesions. Gallbladder and Biliary Tree: Gallbladder has been surgically removed. Spleen: Unremarkable Pancreas: The pancreas is grossly normal in appearance. Adrenal Glands: Unremarkable Kidneys: Kidneys are grossly normal without calculi or hydronephrosis. Bladder: Grossly unremarkable for degree of distention. Bowel: The stomach is grossly normal in appearance. Small bowel is normal in caliber and distribution. Mucosal thickening is noted of the proximal transverse colon intermittently through the left colon. Segmental colitis may be etiology. The appendix is not visualized; however, no secondary findings of acute appendicitis identified. Ascites: Absent Lymphadenopathy: No mesenteric, retroperitoneal or periportal lymphadenopathy. Abdominal Wall and Mesentery: Unremarkable. Vasculature: The visualized abdominal aorta is normal in size and caliber. Evaluation of abdominal and pelvic vessels is limited due to lack of intravenous contrast. Pelvic Organs: Unremarkable Musculoskeletal: No aggressive focal bony lesions, acute fractures or dislocation. Soft tissues: Unremarkable IMPRESSION: 1. No findings to suggest bowel obstruction. 2. Mucosal thickening throughout the proximal transverse and intermittently through the left colon suggesting the possibility of regional colitis. Consider follow-up. Radiation optimization: All CT scans at this facility use at least one of these dose optimization techniques: automated exposure control mA and/or kV adj ustment per patient size (includes targeted exams where dose is matched to clinical indication) or iterative reconstruction. Labs Test 10/29/24 19:40 10/29/24 15:43 Range/Units Urine Color Yellow Yellow Urine Clarity Turbid H Clear Urine pH 5.5 5.0-9.0 Urine Specific [place] 1.029 1.001-1.035 Urine Protein Trace H Negative Urine Ketones Negative Negative Urine Blood Negative Negative /uL Urine Nitrite Negative Negative Urine Bilirubin Negative Negative Urine Urobilinogen Normal Negative mg/dL Urine Leukocyte Esterase 2+ Negative /uL Urine RBC 2 0 - 4 /hpf Urine Microscopic WBC 6 H 0-5 /HPF Urine Squamous Epithelial Cells Mod <5 /hpf Urine Bacteria Few H None Seen /hpf Urine Mucus Few None Seen Urine Glucose Normal Normal mg/dL White Blood Count 5.9 4.4-10.8 10^3/uL Red Blood Count 4.51 4.0-5.20 10^6/uL Hemoglobin 12.4 12.2-16.2 g/dL Hematocrit 37.4 36.0-46.0 % Mean Corpuscular Volume 83.0 80.0-100.0 fL Mean Corpuscular Hemoglobin 27.6 L 28.0-32.0 pg Mean Corpuscular Hemoglobin Concent 33.2 32.0-36.0 g/dL Red Cell Distribution Width 14.9 H 11.8-14.3 % Platelet Count 177 140-450 10^3/uL Mean Platelet Volume 8.7 6.9-10.8 fL Neutrophils (%) (Auto) 65.5 37.0-80.0 % Lymphocytes (%) (Auto) 27.0 10.0-50.0 % Monocytes (%) (Auto) 5.5 0.0-12.0 % Eosinophils (%) (Auto) 1.4 0.0-7.0 % Basophils (%) (Auto) 0.6 0.0-2.0 % Neutrophils # (Auto) 3.8 1.6-8.6 10 ^3/uL Lymphocytes # (Auto) 1.6 0.4-5.4 10 ^3/uL Monocytes # (Auto) 0.3 0-1.3 10 ^3/uL Eosinophils # (Auto) 0.1 0-0.8 10 ^3/uL Basophils # (Auto) 0 0-0.2 10 ^3/uL Nucleated Red Blood Cells 0.1 % Sodium Level 141 136-145 mmol/L Potassium Level 3.7 3.5-5.1 mmol/L Chloride Level 108 H 98-107 mmol/L Carbon Dioxide Level 26 20-31 mmol/L Anion Gap 7 5-15 Blood Urea Nitrogen 8 L 9-23 mg/dL Creatinine 0.77 0.550-1.02 mg/dL Glomerular Filtration Rate Calc 104 >90 mL/min BUN/Creatinine Ratio 10.4 10.0-20.0 Serum Glucose 84 74-106 mg/dL Calcium Level 9.6 8.7-10.4 mg/dL Assessment/Plan Assessment/Plan Assessment Acute abdominal pain Acute colitis Morbid obesity Plan Admit the patient to [facility] surge to the hospitalist Rocephin/Flagyl Clear liquid diet Pain management Continue treatment per orders. Plan discussed with: Patient My Orders Orders - AIDEE NIETO Procedure Category Date Status Time Admit ADMIT 10/29/24 Transmitted 19:50 Ceftriaxone 1gm/50ml PHA 10/30/24 In Process D5w (Rocephin) 09:00 Metronidazole PHA 10/29/24 In Process 500mg/100ml (Flagyl 22:00 Pantoprazole Tablet PHA 10/30/24 In Process (Protonix Tablet) 06:00 Stool Bacterial ABEL 10/29/24 Logged Culture 19:52 Hydrocodone-Acet PHA 10/29/24 In Process 5/325mg Tab ([place] 20:00 Ondansetron Hcl PHA 10/29/24 In Process (Zofran) 20:00 Complete Blood Count LAB 10/30/24 Verified 04:00 Condition: Stable DARLENE 10/29/24 In Process 19:52 Acetaminophen Tablet PHA 10/29/24 In Process (Tylenol Tablet) 20:00 Clear Liq Diet DIET 10/30/24 Transmitted Breakfast Bedrest With Bathroom DARLENE 10/29/24 In Process Privileg 19:52 Basic Metabolic Panel LAB 10/30/24 Verified 04:00 Date of Service: Oct 29, 2024 Billing Provider: AIDEE NIETO Common Visit Codes: [id number] INP/OBS CARE (MOD) AIDEE NIETO Oct 29, 2024 22:11
[2024-10-30] MEDS ORDERED: PANTOPRAZOLE 40 MG TAB PO SCH (06:00)
[2024-10-30] MEDS ORDERED: cefTRIAXone 1GM/50ML D5W 50 ML IV SCH (09:00)
--- NOTE | 2024-10-30 14:19 | DVHDSRES ---
Discharge Summary Date of Admission Resident Creating Document: JASMEET HOLLINGSWORTH RESIDENT Oct 29, 2024 at 19:50 Date of Discharge: Oct 30, 2024 Labs/Diagnostic Data: Laboratory Results Test 10/29/24 19:40 10/29/24 15:43 Urine Color Yellow (Yellow) Urine Clarity Turbid (Clear) Urine pH 5.5 (5.0-9.0) Urine Specific [place] 1.029 (1.001-1.035) Urine Protein Trace (Negative) Urine Ketones Negative (Negative) Urine Blood Negative /uL (Negative) Urine Nitrite Negative (Negative) Urine Bilirubin Negative (Negative) Urine Urobilinogen Normal mg/dL (Negative) Urine Leukocyte Esterase 2+ /uL (Negative) Urine RBC 2 /hpf (0 - 4) Urine Microscopic WBC 6 /HPF (0-5) Urine Squamous Epithelial Cells Mod /hpf (<5) Urine Bacteria Few /hpf (None Seen) Urine Mucus Few (None Seen) Urine Glucose Normal mg/dL (Normal) White Blood Count 5.9 10^3/uL (4.4-10.8) Red Blood Count 4.51 10^6/uL (4.0-5.20) Hemoglobin 12.4 g/dL (12.2-16.2) Hematocrit 37.4 % (36.0-46.0) Mean Corpuscular Volume 83.0 fL (80.0-100.0) Mean Corpuscular Hemoglobin 27.6 pg (28.0-32.0) Mean Corpuscular Hemoglobin Concent 33.2 g/dL (32.0-36.0) Red Cell Distribution Width 14.9 % (11.8-14.3) Platelet Count 177 10^3/uL (140-450) Mean Platelet Volume 8.7 fL (6.9-10.8) Neutrophils (%) (Auto) 65.5 % (37.0-80.0) Lymphocytes (%) (Auto) 27.0 % (10.0-50.0) Monocytes (%) (Auto) 5.5 % (0.0-12.0) Eosinophils (%) (Auto) 1.4 % (0.0-7.0) Basophils (%) (Auto) 0.6 % (0.0-2.0) Neutrophils # (Auto) 3.8 10 ^3/uL (1.6-8.6) Lymphocytes # (Auto) 1.6 10 ^3/uL (0.4-5.4) Monocytes # (Auto) 0.3 10 ^3/uL (0-1.3) Eosinophils # (Auto) 0.1 10 ^3/uL (0-0.8) Basophils # (Auto) 0 10 ^3/uL (0-0.2) Nucleated Red Blood Cells 0.1 % Sodium Level 141 mmol/L (136-145) Potassium Level 3.7 mmol/L (3.5-5.1) Chloride Level 108 mmol/L (98-107) Carbon Dioxide Level 26 mmol/L (20-31) Anion Gap 7 (5-15) Blood Urea Nitrogen 8 mg/dL (9-23) Creatinine 0.77 mg/dL (0.550-1.02) Glomerular Filtration Rate Calc 104 mL/min (>90) BUN/Creatinine Ratio 10.4 (10.0-20.0) Serum Glucose 84 mg/dL (74-106) Calcium Level 9.6 mg/dL (8.7-10.4) Other Laboratory Tests 10/29/24 15:43 Brief Hx & Hospital Course: Patient eloped before my assessment Condition at Discharge: Undetermined Final Diagnosis/Problems List Questionable cystitis Discharge Disposition: Eloped Discharge Statement: "Patient was advised to return to the ER or call 911 if any headaches, dizziness, shortness of breath, chest pain, abdominal pain, bleeding, fevers, or worsening of medical condition. Patient was counseled about treatment plan, medications, possible side effects, patientverbalized understanding. All questions were answered to the best of my ability. This discharge took greater then 30 minutes in planning, reviewing documentation, counseling the patient, and discussing with other team members." ASSESSMENT ASSESSMENT Assessment JASMEET HOLLINGSWORTH RESIDENT Oct 30, 2024 14:19
== END 2024-10-30 00:02 | disposition left against medical advice (07) | DRG 249 ==
LOC: ER 15:02 → OVERFLOW 19:50
PROVIDERS: ATTEND Emergency Medicine
DX: K52.9 Noninfective gastroenteritis and colitis, unspecified (principal); N30.90 Cystitis, unspecified without hematuria; E66.01 Morbid (severe) obesity due to excess calories; Z79.1 Long term (current) use of non-steroidal anti-inflammatories (NSAID); Z79.2 Long term (current) use of antibiotics; Z79.899 Other long term (current) drug therapy; Z79.891 Long term (current) use of opiate analgesic; Z68.39 Body mass index [BMI] 39.0-39.9, adult
CPT/HCPCS: 36415; 74176; 80048; 81001; 85025; 96365; 96375; G0378; J2405; J3490

== ENCOUNTER 2024-11-28 12:41 | Emergency (ER) | payer MEDICAID ==
[~2024-11-28] VITALS: Ht 170.2 cm; Wt 112.7 kg
[2024-11-28 15:03] VITALS: BP 129/77; PULSE 63; RESP 18; TEMP 98.7; O2SAT 98
[2024-11-28] MEDS ORDERED: ACET500T58 PO (22:22)
[2024-11-28] MEDS ORDERED: AMOX875T4 PO (22:22)
== END 2024-11-28 15:04 | disposition left against medical advice (07) ==
LOC: ER 12:42
DX: R05.9 Cough, unspecified (principal); R50.9 Fever, unspecified; M79.10 Myalgia, unspecified site; J02.9 Acute pharyngitis, unspecified; Z53.21 Procedure and treatment not carried out due to patient leaving prior to being seen by health care provider

== ENCOUNTER 2024-11-28 21:25 | Emergency (ER) | payer MEDICAID ==
[2024-11-28 21:50] VITALS: BP 113/73; PULSE 72; RESP 16; TEMP 98; O2SAT 98
[2024-11-28] MEDS ORDERED: ACET500T58 PO (22:22)
[2024-11-28] MEDS ORDERED: AMOX875T4 PO (22:22)
--- NOTE | 2024-11-28 22:23 | ED.PDOC ---
Eye-HPI HPI Comments 34-YEAR-OLD FEMALE PRESENTS TO ER WITH COMPLAINTS OF SORE THROAT X3 DAYS. PATIENT REPORTS THAT SHE HAS BEEN EXPERIENCING SORE THROAT, MILD COUGH AND CONGESTION X3 DAYS. SHE RATES HER CURRENT SORE THROAT PAIN AN 8/10. DENIES USE OF MEDICATIONS FOR CURRENT SYMPTOMS. STATES THAT OTHERS AT HOME HAVE ALSO BEEN EXPERIENCING SIMILAR SYMPTOMS. PATIENT PRESENTS TO ER AMBULATORY ON ARRIVAL, WITH STEADY GAIT, IN NO DISTRESS. DENIES FEVER, SHORTNESS OF BREATH, DIFFICULTY SWALLOWING, CHEST PAIN, NAUSEA/VOMITING, CHANGES IN URINATION/BM OR ANY FURTHER SYMPTOMS/COMPLAINTS Chief Complaint: Sore Throat Time Seen by MD: 21:34 Primary Care Provider: UNKNOWN Reviewed Notes: Nurses Notes, Medications, Allergies Allergies: Coded Allergies: NO KNOWN ALLERGIES (Unverified , 09/19/24) Home Meds Active Scripts Acetaminophen (Acetaminophen) 500 Mg Tab, 500 MG PO Q4HP, #30 TAB 0 Refills Prov:RAYMUNDO GRIFFIN 11/28/24 Amoxicillin & Pot Clavulanate (Amoxicillin/Potassium Cla) 875 Mg Tab, 1 TAB PO BID for 7 Days, #14 TAB 0 Refills Prov:RAYMUNDO GRIFFIN 11/28/24 Dextromethorphan-Guaifenesin (Robitussin-Dm) 10 Ml Sr, 10 ML GT Q6HPRN PRN for 5 Days, #120 SYP Prov:RUBENS HERNANDEZ DO 09/23/24 Azithromycin (Azithromycin) 500 Mg Tab, 250 MG PO DAILY for 5 Days, #5 TAB Prov:RUBENS HERNANDEZ DO 09/23/24 Ondansetron Odt 4MG Tab (ZOFRAN PO) 4 Mg Tb, 4 MG PO Q4HPRN PRN for 7 Days, #35 TAB ODT TAB-DISSOLVE IN MOUTH, THEN SWALLOW Prov:ADDISONOLYDAR DO 09/20/24 Ibuprofen (Ibuprofen) 800 Mg Tab, 800 MG PO TID PRN for 4 Days, #12 TAB Prov:INDRAPAPITOOLYDAR DO 09/20/24 Hydrocodone-Acetaminophen (Hydrocodone/Acetaminophen 10-325 mg) 1 Tab Tab, 1 TAB PO Q6HPRN PRN for 7 Days, #28 TAB Prov:ADDISONDAR DO 09/20/24 Docusate Sodium (Colace) 100 Mg Cap, 1 CAP PO BID, #60 CAP 2 Refills Prov:DAR JAIME DO 09/20/24 Cephalexin Monohydrate (Cephalexin) 500 Mg Tab, 1 TAB PO QID for 7 Days, #28 TAB Prov:DAR JAIME DO 09/20/24 Information Source: Patient Mode of Arrival: Ambulatory Past Medical History PAST MEDICAL HISTORY: Liver (FATTY LIVER) Surgical History (Other): LEFT-SIDED OOPHORECTOMY LEFT-SIDED SALPINGECTOMY DRUG ABUSE RESISTANCE EDUCATION OFFICER History: No Pertinent DRUG ABUSE RESISTANCE EDUCATION OFFICER History Family History Family History: Unknown Social History Smoker: Non-Smoker Alcohol: Denies ETOH Use Drugs: Denies Drug Use Lives In: Home Constitutional: denies: chills, diaphoresis, fatigue, fever, malaise, sweats, weakness, others EENTM: reports: others ( STATED IN HPI) Respiratory: reports: others ( STATED IN HPI) Cardiovascular: denies: chest pain, dizzy spells, diaphoresis, Dyspnea on exertion, edema, irregular heart beat, left arm pain, lightheadedness, palpitations, PND, syncope, others Gastrointestinal: denies: abdomen distended, abdominal pain, blood streaked bowels, constipated, diarrhea, dysphagia, difficulty swallowing, hematemesis, melena, nausea, poor appetite, poor fluid intake, rectal bleeding, rectal pain, vomiting, others Genitourinary: denies: abnormal vagina bleeding, burning, dyspareunia, dysuria, flank pain, frequency, hematuria, incontinence, pain, , vagina d ischarge, urgency, others Neurological: denies: dizziness, fainting, headache, left sided numbness, left sided weakness, numbness, paresthesia, pre-existing deficit, right sided numbness, right sided weakness, seizure, speech problems, tingling, tremors, weakness, others Musculoskeletal: denies: back pain, gout, joint pain, joint swelling, muscle pain, muscle stiffness, neck pain, others Integumetry: denies: bruises, change in color, change in hair/nails, dryness, laceration, lesions, lumps, rash, wounds, others Allergic/Immunocompromised: denies: Difficulty Healing, Frequent Infections, Hives, Itching, others Hematologic/Lymphatic: denies: anemia, blood clots, easy bleeding, easy bruising, swollen glands, others Endocrine: denies: excessive hunger, excessive sweating, excessive thirst, excessive urination, flushing, intolerance to cold, intolerance to heat, unexplained weight gain, unexplained weight loss, others Psychiatric: denies: anxiety, bipolar disorder, depression, hopeless, panic disorder, schizophrenia, sleepless, suicidal, others Physical Exam General Appearance: No Apparent Distress HEENT: PERRL/EOMI, Pharyngeal Erythema (MILD TONSILLAR SWELLING/ERYTHEMA NOTED BILATERALLY WITHOUT EXUDATES. UVULA-NORMAL), TMs Normal Neck: Full Range of Motion, Non-Tender, Normal Respiratory: Chest Non-Tender, Lungs Clear, No Accessory Muscle Use, No Respiratory Distress, Normal Breath Sounds Cardiovascular: No Murmur, No Gallop, Regular Rate/Rhythm Breast Exam: Deferred Gastrointestinal: NOT DONE Genitalia: Deferred Pelvic: Deferred Rectal: Deferred Extremities: Normal capillary refill, Normal range of motion Neurologic: Alert, No Motor Deficits, Normal Affect, Normal Mood, No Sensory Deficits Cerebellar Function: Normal Reflexes: Normal Skin: Dry, Normal Color, Warm Lymphatic: No Adenopathy Was a procedure done? Was a procedure done?: No Sedation Sedation?: No EENT DIFF Eye: N/A Sore Throat: Epiglottitis, Mononeucleosis, Peritonsillar Abscess, Viral Pharyngitis X-Ray, Labs, Meds, VS Vital Signs Date Time Temp Pulse Resp B/P (MAP) Pulse Ox O2 Delivery O2 Flow Rate FiO2 11/28/24 21:50 72 16 98 Room Air 11/28/24 21:50 98.0 72 16 113/73 (86) 98 98.0 PATIENT TOLERATING P.O. INTAKE WELL AND IN NO DISTRESS PRIOR TO DISCHARGE ADVISED TO DRINK PLENTY OF FLUIDS ADVISED TO FOLLOW UP WITH PCP IN 1-2 DAYS PATIENT VERBALIZED UNDERSTANDING AND AGREEABLE WITH CURRENT PLAN OF CARE ADVISED TO RETURN TO ER IMMEDIATELY IF SYMPTOMS WORSEN Time of 1ST Reevaluation: 22:04 Reevaluation 1ST: N/A Patient Education/Counseling: Diagnosis, Treatment, Prognosis, Need For Follow Up Family Education/Counseling: No Family Present Departure 1 Departure Time of Disposition: 22:20 Impression: Primary Impression: Upper respiratory infection Qualified Codes: J06.9 - Acute upper respiratory infection, unspecified Disposition: HOME / SELF CARE / HOMELESS Condition: Stable e-Prescriptions Acetaminophen (Acetaminophen) 500 Mg Tab 500 MG PO Q4HP, #30 TAB 0 Refills Prov: RAYMUNDO GRIFFIN 11/28/24 Amoxicillin & Pot Clavulanate (Amoxicillin/Potassium Cla) 875 Mg Tab 1 TAB PO BID for 7 Days, #14 TAB 0 Refills Prov: RAYMUNDO GRIFFIN 11/28/24 Discharged With: Self Critical Care Note Critical Care Time?: No Stability Stability form required: No Heart Score Heart Score: Heart Score Response (Comments) Value History N/A 0 EKG N/A 0 Age N/A 0 Risk Factors N/A 0 Troponin N/A 0 Total 0 RAYMUNDO GRIFFIN Nov 28, 2024 22:23
== END 2024-11-28 22:26 | disposition home or self-care (01) ==
LOC: ER 21:25
DX: J06.9 Acute upper respiratory infection, unspecified (principal); Z90.79 Acquired absence of other genital organ(s)

== ENCOUNTER 2024-12-21 08:27 | Emergency (ER) | payer MEDICAID ==
[~2024-12-21] VITALS: Ht 172.7 cm; Wt 114.9 kg
[~2024-12-21 08:27] MED LIST changes: +ACET500T58 PO; +AMOX875T4 PO
[2024-12-21 08:54] VITALS: BP 114/62; PULSE 73; RESP 18; TEMP 98.1; O2SAT 96
--- NOTE | 2024-12-21 09:04 | ED.PDOC ---
SOB-HPI HPI Comments 34 YEAR OLD FEMALE PRESENTS TO THE ED WITH CHIEF COMPLAINT OF FLU-LIKE SYMPTOMS AND DYSURIA. PATIENT REPORTS THAT SHE HAS BEEN EXPERIENCING A COUGH WITH ASSOCIATED EAR PAIN, SORE THROAT, AND NASAL CONGESTION ALONG WITH BURNING DYSURIA FOR THE PAST 4 DAYS. PATENT NOTES SHE SAW SOME WHITE DISCHARGE ON HER TONSILS WHEN LOOKING AT HER THROAT IN THE MIRROR. PATIENT DENIES ANY SOB, CHEST PAIN, HEADACHE, N/V/D, ABDOMINAL PAIN, DIZZINESS, OR FEVER. Chief Complaint: Flu like Time Seen by MD: 09:01 Primary Care Provider: UNKNOWN Reviewed notes: Nurses Notes, Medications, Allergies Information Source: Patient Mode of Arrival: Ambulatory Severity: Mild Timing: Days Duration: Since onset Context: At Rest PE Risk Factors: None History of: None Prehospital treatment: None Modifying Factors: Nothing Associated Signs and Symptoms: Cough, Nasal Congestion, Sore Throat If cough with SOB: Non-Productive Past Medical History PAST MEDICAL HISTORY: Liver Surgical History: Denies all surgeries FOLDER SEAMER AUTOMATIC History: No Pertinent FOLDER SEAMER AUTOMATIC History Family History Family History: Unknown Social History Smoker: Non-Smoker Alcohol: Denies ETOH Use Drugs: Denies Drug Use Lives In: Home Constitutional: denies: chills, diaphoresis, fatigue, fever, malaise, sweats, weakness, others EENTM: reports: ear pain, nose congestion, throat pain; denies: blurred vision, double vision, ear bleeding, ear discharge, ear drainage, ear ringing, eye pain, eye redness, hearing loss, mouth pain, mouth swelling, nasal discharge, nose bleeding, nose pain, photophobia, tearing, throat swelling, voice changes, others Respiratory: reports: cough; denies: hemoptysis, orthopnea, SOB at rest, shortness of breath, SOB with excertion, stridor, wheezing, others Cardiovascular: denies: chest pain, dizzy spells, diaphoresis, Dyspnea on exertion, edema, irregular heart beat, left arm pain, lightheadedness, palpitations, PND, syncope, others Gastrointestinal: denies: abdomen distended, abdominal pain, blood streaked bowels, constipated, diarrhea, dysphagia, difficulty swallowing, hematemesis, melena, nausea, poor appetite, poor fluid intake, rectal bleeding, rectal pain, vomiting, others Genitourinary: reports: dysuria; denies: abnormal vagina bleeding, burning, dyspareunia, flank pain, frequency, hematuria, incontinence, pain, , vagina discharge, urgency, others Neurological: denies: dizziness, fainting, headache, left sided numbness, left sided weakness, numbness, paresthesia, pre-existing deficit, right sided numbness, right sided weakness, seizure, speech problems, tingling, tremors, weakness, others Musculoskeletal: denies: back pain, gout, joint pain, joint swelling, muscle pain, muscle stiffness, neck pain, others Integumetry: denies: bruises, change in color, change in hair/nails, dryness, laceration, lesions, lumps, rash, wounds, others Allergic/Immunocompromised: denies: Difficulty Healing, Frequent Infections, Hives, Itching, others Hematologic/Lymphatic: denies: anemia, blood clots, easy bleeding, easy bruising, swollen glands, others Endocrine: denies: excessive hunger, excessive sweating, excessive thirst, excessive urination, flushing, intolerance to cold, intolerance to heat, unexplained weight gain, unexplained weight loss, others Psychiatric: denies: anxiety, bipolar disorder, depression, hopeless, panic disorder, schizophrenia, sleepless, suicidal, others All Other Systems: Reviewed and Negative Physical Exam General Appearance: No Apparent Distress, Normal HEENT: PERRL/EOMI, Pharyngeal Erythema (MILD TONSILLAR SWELLING, NO EXUDATES. ), Sinuses (TENDERNESS MAXILLARY SINIUSES WITH POST NASal drip. ), TM Abnormal (R) Neck: Full Range of Motion, Non-Tender, Normal, Normal Inspection Respiratory: Chest Non-Tender, Expiration, No Accessory Muscle Use, No Respiratory Distress, Rhonchi Cardiovascular: No Edema, No JVD, No Murmur, No Gallop, Normal Peripheral Pulses, Regular Rate/Rhythm Breast Exam: Deferred Gastrointestinal: No Organomegaly, Non Tender, No Pulsatile Mass, Normal Bowel Sounds, Soft Genitalia: Deferred Pelvic: Deferred Rectal: Deferred Extremities: No calf tenderness, Normal capillary refill, Normal inspection, Normal range of motion, Non-tender, No pedal edema Musculoskeletal : Apperance: Normal Neurologic: Alert, biscuit packer II-XII nml as Tested, No Motor Deficits, Normal Affect, Normal Mood, No Sensory Deficits Cerebellar Function: Normal Reflexes: Normal Skin: Dry, Normal Color, Warm Lymphatic: No Adenopathy Was a procedure done? Was a procedure done?: No Differential Dx Differential Diagnosis: Bronchitis, Pneumonia, Sinusitis, Allergic Rhinitis, Otitis Media, Pharyngitis, URI Comments UTI X-Ray, Labs, Meds, VS Vital Signs Date Time Temp Pulse Resp B/P (MAP) Pulse Ox O2 Delivery O2 Flow Rate FiO2 12/21/24 08:54 73 18 96 Room Air 12/21/24 08:54 98.1 73 18 114/62 (79) 96 98.1 12/21/24 08:34 98.1 73 18 114/62 (79) 96 98.1 Lab Test 12/21/24 08:30 Range/Units Urine Color Yellow Yellow Urine Clarity Turbid H Clear Urine pH 5.5 5.0-9.0 Urine Specific [place] 1.030 1.001-1.035 Urine Protein Trace H Negative Urine Ketones Negative Negative Urine Blood 1+ H Negative /uL Urine Nitrite Negative Negative Urine Bilirubin Negative Negative Urine Urobilinogen Normal Negative mg/dL Urine Leukocyte Esterase 2+ Negative /uL Urine RBC 2 0 - 4 /hpf Urine Microscopic WBC 10 H 0-5 /HPF Urine Squamous Epithelial Cells Many <5 /hpf Urine Calcium Oxalate Crystals Few None Seen Urine Bacteria Mod H None Seen /hpf Urine Mucus Few None Seen Urine Glucose Normal Normal mg/dL X-Ray, Labs, Meds, VS Comment EXTERNAL MEDICAL RECORDS REVIEWED: [NONE] INDEPENDENT HISTORIANS: [NONE] SOCIAL DETERMINANTS OF HEALTH: [NONE] LABS ORDERED: UA, URINE PREG REVIEWED AND INTERPRETED RESULTS: WBC:10, MODERATE BACT, LEUKO 2+, BLOOD 1+ IMAGING ORDERED: NONE TREATMENTS ORDERED: NONE PROCEDURES PERFORMED: NONE CRITICAL CARE TIME: NONE I HAVE DISCUSSED THE PATIENT WITH THE ATTENDING PHYSICIAN DR. BALLESTEROS AND HE AGREES WITH THE PATIENT'S PLAN OF CARE AND DISPOSITION. BASED ON HISTORY OF PRESENT ILLNESS, AND PHYSICAL EXAM, PATIENT WILL BE DISCHARGED HOME. DISCUSSED PLAN FOR DISCHARGE HOME WITH RX [SEPTRA DS, PHENERGAN AND PREDNISONE]. MEDICATION WARNINGS GIVEN. SHARED DECISION MAKING: DISCUSSED WITH PATIENT THAT THEIR WORKUP WAS NORMAL. PATIENT INSTRUCTED TO FOLLOW UP WITH PRIMARY CARE PROVIDER IN 1-2 DAYS FOR RE- EVALUATION OF SYMPTOMS. PATIENT VERBALIZES UNDERSTANDING TO RETURN TO ED FOR NEW OR WORSENING SYMPTOMS OR IF FOLLOW UP WITH PCP CANNOT BE OBTAINED. PATIENT FEELS COMFORTABLE GOING HOME AT THIS TIME. ALL QUESTIONS ADDRESSED AT TIME OF DISCHARGE. Time of 1ST Reevaluation: 09:30 Reevaluation 1ST: Improved Patient Education/Counseling: Diagnosis, Treatment, Need For Follow Up Family Education/Counseling: Diagnosis, Treatment, Need For Follow Up Medical Screening: No EMC Exist At This Time Departure 1 Departure Time of Disposition: Impression: Primary Impression: Sinusitis Qualified Codes: J01.00 - Acute maxillary sinusitis, unspecified Additional Impressions: Acute cystitis Qualified Codes: N30.00 - Acute cystitis without hematuria Bronchitis Disposition: HOME / SELF CARE / HOMELESS Condition: Stable Additional Instructions: FOLLOW-UP WITH PCP IN 1 TO 2 DAYS. TAKE MEDICATIONS PRESCRIBED. RETURN TO ED FOR ANY NEW OR WORSENING SYMPTOMS. e-Prescriptions Promethazine-Dm (Promethazine Dm 6.25-15 mg/5Ml) 1 Edie Edie 5 ML PO TID, #160 ML Prov: MARIANA MARIEE 12/21/24 Prednisone (Prednisone) 20 Mg Tab 60 MG PO DAILY, #15 TAB Prov: MARIANA MARIEE 12/21/24 Sulfamethoxazole W/Trimethopri (Bactrim Ds Tablet) 1 Tab Tb 1 TAB PO BID for 10 Days, #20 TAB Prov: MARIANA MARIEE 12/21/24 Discharged With: Self, Relative Critical Care Note Critical Care Time?: No Stability Stability form required: No Heart Score Heart Score: Heart Score Response (Comments) Value History N/A 0 EKG N/A 0 Age N/A 0 Risk Factors N/A 0 Troponin N/A 0 Total 0 I personally scribed for MARIANA MARIEE ([email or web address]) on 12/21/24 at 09:04. Electronically submitted by Walter Meneses ([email or web address]). I personally scribed for MARIANA MARIEE ([email or web address]) on 12/21/24 at 09:10. Electronically submitted by Walter Meneses ([email or web address]). I personally scribed for MARIANA MARIEE ([email or web address]) on 12/21/24 at 09:21. El ectronically submitted by Walter Meneses ([email or web address]). MARIANA MARIEE December 21, 2024 09:04
[2024-12-21 09:13] LABS: Urine Bacteria MOD /hpf (None Seen); Urine Blood 1+ /uL (Negative); Urine Clarity Turbid (Clear); Urine Color Yellow (Yellow); Urine Mucus FEW (None Seen); Urine Protein, UAD TRACE (Negative); Urine Squamous Epithelial Cell MANY /hpf (<5); Urine Urobilinogen Normal (Negative); Urine WBC 10 /HPF (0-5); Urine pH 5.5 (5.0-9.0)
[2024-12-21] MEDS ORDERED: BACDST PO (09:28)
[2024-12-21] MEDS ORDERED: PROM1SOL4 PO (09:28)
[2024-12-21] MEDS ORDERED: PRED20TA2 PO (09:28)
== END 2024-12-21 09:26 | disposition home or self-care (01) ==
LOC: ER 08:27
DX: J01.00 Acute maxillary sinusitis, unspecified (principal); N30.00 Acute cystitis without hematuria; J40 Bronchitis, not specified as acute or chronic
CPT/HCPCS: 81001